=== PATIENT | male | born 1945 | race Caucasian/White ===

== ENCOUNTER 2019-02-07 08:16 | Inpatient (IN) ==
--- NOTE | 2019-01-31 15:59 | Anesthesiology Consultation ---
Date of Service January 31, 2019 Assessment & Plan (1) Encounter for pre-operative examination: - Patient needs new EKG, CT scan of chest, and labs. Chart Review Chart Review: Patient NOT seen in Pre Admission Testing Consults Requested none History Surgery Operation Date: 02/07/19 08:50 Proposed Procedures p Navigational Bronchoscopy with ICG Marking, - Juan Tucker MD, FACS s Robotic Right Video Assisted Thoracoscopy with Right Upper Lobe Wedge Resection, Possible Right Upper Lobectomy with Mediastinaly Lymphadenectomy - Juan Tucker MD, FACS Height/Weight Height: 5 ft 6 in Weight: 66.678 kg Allergies Allergy/AdvReac Type Severity Reaction Status Date / Time infliximab [From Remicade] Allergy Severe throat Verified 01/30/19 11:54 swells, tightness in chest azathioprine [From Imuran] Allergy THROAT Verified 01/30/19 11:57 TIGHT AND TROUBLE BREATHING Medications Home Medications Medication Instructions Recorded Confirmed Last Taken cyanocobalamin (vitamin B-12) 2,000 mcg IM MONTHLY 01/06/19 01/30/19 12/11/18 10:00 ergocalciferol (vitamin D2) 50,000 unit PO WK 01/30/19 01/30/19 Unknown [Vitamin D2] levothyroxine 137 mcg PO QAM 01/30/19 01/30/19 Unknown Past Medical History Medical History Crohns disease (Acute) History of pneumonia (Acute) Hypothyroid (Acute) Past Surgical History Surgical History History of appendectomy (Acute) History of bowel resection (Acute) History of colonoscopy (Acute) History of neck surgery (Acute) History of bronchoscopy Social History Smoking Status: Never smoker Do You Dip or Chew Tobacco: No Hx Alcohol Use: No Hx Substance Use: No substance use type: does not use
--- NOTE | 2019-02-04 12:31 | Anesthesiology Consultation ---
Date of Service February 04, 2019 The patient was seen by cardiology on 11/18/18 and no further testing is necessary at this time. He has had no EKG changes since 2013 when he had a normal stress echo and he has no anginal symptoms. Assessment & Plan (1) Encounter for pre-operative examination: Chart Review Chart Review: Acceptable Risk for Surgery and Patient NOT seen in Pre Admission Testing Consults Requested none History Surgery Operation Date: 02/07/19 08:50 Proposed Procedures p Navigational Bronchoscopy with ICG Marking, - Juan Tucker MD, FACS s Robotic Right Video Assisted Thoracoscopy with Right Upper Lobe Wedge Resection, Possible Right Upper Lobectomy with Mediastinaly Lymphadenectomy - Juan Tucker MD, FACS Height/Weight Height: 5 ft 6 in Weight: 66.678 kg Allergies Allergy/AdvReac Type Severity Reaction Status Date / Time infliximab [From Remicade] Allergy Severe throat Verified 01/30/19 11:54 swells, tightness in chest azathioprine [From Imuran] Allergy THROAT Verified 01/30/19 11:57 TIGHT AND TROUBLE BREATHING Medications Home Medications Medication Instructions Recorded Confirmed Last Taken cyanocobalamin (vitamin B-12) 2,000 mcg IM MONTHLY 01/06/19 01/30/19 12/11/18 10:00 ergocalciferol (vitamin D2) 50,000 unit PO WK 01/30/19 01/30/19 Unknown [Vitamin D2] levothyroxine 137 mcg PO QAM 01/30/19 01/30/19 Unknown Past Medical History Medical History Crohns disease (Acute) History of pneumonia (Acute) Hypothyroid (Acute) Renal insufficiency Past Surgical History Surgical History History of appendectomy (Acute) History of bowel resection (Acute) History of colonoscopy (Acute) History of neck surgery (Acute) History of bronchoscopy Social History Smoking Status: Never smoker Do You Dip or Chew Tobacco: No Hx Alcohol Use: No Hx Substance Use: No substance use type: does not use Testing Electrocardiogram Date: 02/03/19 Findings: + LBBB (L anterior fascicle block), + SB @ (54) and + RBBB Chest X-Ray CT chest superdimension wo con CLINICAL HISTORY: Cavitary lesion of lung. COMPARISON STUDY: Chest CT November 27, 2018. PET/CT December 27, 2018. TECHNIQUE: Axial images of the chest were obtained without IV contrast according to Superdimension protocol. Automated exposure control was utilized for the study. A dose lowering technique was utilized adhering to the principles of ALARA. FINDINGS: No enlarged axillary, mediastinal or hilar lymph nodes are present. The size of the heart is normal. There is no pericardial effusion. Central airways are patent. There is no pneumothorax or pleural effusion. There is no consolidation to suggest pneumonia. A few calcified granulomas within the lungs are noted. A 1.7 x 1 cm irregular cavitary nodule with adjacent ground glass opacity within the right upper lobe on image 69 of 306 is unchanged since initial CT of November 27, 2018. This had mild FDG uptake on previous PET. No suspicious osseous lesions are noted. A 5 mm calculus within the upper pole of the right kidney is partially imaged. Upper abdomen is otherwise unremarkable. IMPRESSION: 1. 1.7 x 1 cm irregular cavitary nodule with adjacent groundglass opacity within the right upper lobe which is similar to initial CT of November 27, 2018. This is highly suggestive of bronchogenic carcinoma. 2. No evidence of metastatic disease within chest. Electronically signed by: Champ Sultana M.D. 02/03/2019 2:07 PM Other Testing Laboratory Tests 12/06/18 02/03/19 02/03/19 13:59 13:17 13:17 WBC 6.11 Hgb 13.5 L Hct 39.7 L Plt Count 192 PT 10.0 INR 1.0 APTT 27.0 Sodium 143 Potassium 3.4 L Chloride 114 H Carbon Dioxide 20 L BUN 20 H Creatinine 1.64 H Glucose 78
[~2019-02-07 08:16] MED LIST: LR 15ML/HR IV SCH
--- NOTE | 2019-02-07 09:21 | History & Physical Bridge Note ---
Date of Service February 07, 2019 History & Physical Bridge Note I have examined the patient, reviewed the History & Physical and in the interval since the performance of the History & Physical I have noted the following changes of clinical significance: no changes noted
[2019-02-07] MEDS ORDERED: HYDROmorphone INJ 1 MG/ML SYRINGE IV PRN (10:08)
[2019-02-07] MEDS ORDERED: fentaNYL citrate 100 MCG/2 ML VIAL IV PRN (10:08)
[2019-02-07] MEDS ORDERED: ePHEDrine sulfate 50 MG/ML AMP IV PRN (10:08)
[2019-02-07] MEDS ORDERED: ATROPINE SULFATE 0.1 MG/ML 10ML SYR IV PRN (10:08)
[2019-02-07] MEDS ORDERED: ONDANSETRON INJ 2 MG/ML 2 ML VIAL IV PRN ×2 (10:08→15:56)
[2019-02-07] MEDS ORDERED: MIDAZOLAM HCL 1 MG/ML 2ML VIAL ONE (10:21)
[2019-02-07] MEDS ORDERED: fentaNYL citrate 100 MCG/2 ML VIAL ONE (10:21)
[2019-02-07] MEDS ORDERED: LIDOCAINE 2% JELLY 5 ML TUBE ONE (11:11)
[2019-02-07] MEDS ORDERED: SODIUM CHLORIDE 0.9% PF 50 ML VIAL ONE (11:12)
[2019-02-07] MEDS ORDERED: BUPIVACAINE LIPOSOME 1.3% 266 MG/20 ML VIAL ONE (11:12)
[2019-02-07] MEDS ORDERED: BUPIVACAINE 0.5 % 5 MG/1 ML MPF 30ML VIAL ONE (11:12)
[2019-02-07] MEDS ORDERED: SODIUM CHLORIDE 0.9% INJ 10 ML VIAL ONE (11:50)
[2019-02-07] MEDS ORDERED: CEFAZOLIN 250 MG/ML 1 GM VIAL ONE (11:50)
[2019-02-07] MEDS ORDERED: CEFAZOLIN 1000MG 1,000 MG/7.5 ML SYR IV ONE (11:52)
[2019-02-07] MEDS ORDERED: LIDOCAINE HCL 2% 2 ML VIAL/AMP(20MG/ML) INFIL ONE (11:59)
[2019-02-07] MEDS ORDERED: NEOSTIGMINE METHYLSULFATE 5 MG/5 ML SYR ONE (11:59)
[2019-02-07] MEDS ORDERED: ONDANSETRON INJ 2 MG/ML 2 ML VIAL ONE (11:59)
[2019-02-07] MEDS ORDERED: DEXAMETHASONE SOD INJ 4 MG/ML VIAL ONE (11:59)
[2019-02-07] MEDS ORDERED: PROPOFOL IV EMULSION 10 MG/ML 20 ML VIAL IV ONE (11:59)
[2019-02-07] MEDS ORDERED: GLYCOPYRROLATE 0.2 MG/ML VIAL ONE (11:59)
[2019-02-07] MEDS ORDERED: ROCURONIUM BROMIDE 10 MG/ML 5 ML VIAL ONE (11:59)
[2019-02-07] MEDS ORDERED: HYDROmorphone INJ 2 MG/ML SYR/VIAL ONE (12:00)
--- NOTE | 2019-02-07 12:40 | Fluoroscopy Report ---
FL chest 1V frontal CLINICAL HISTORY: WOOD BRONCH WITH ICG MARKINGbronchoscopy COMPARISON STUDY: None FLUOROSCOPY TIME: 32nd NUMBER OF FLUOROSCOPIC IMAGES: 1 FINDINGS: Image intensifier was utilized for navigational bronchoscopy IMPRESSION: Image intensifier utilization for navigational bronchoscopy The above report was generated using voice recognition software. It may contain grammatical, syntax or spelling errors. Electronically signed by: Parveen Mccormack M.D. 02/07/2019 12:39 PM
[2019-02-07] MEDS ORDERED: INDOCYANINE GREEN 25 MG/10 ML INJ ONE (12:59)
--- NOTE | 2019-02-07 15:05 | Post Operative Brief Note ---
Immediate Post Op Note v1 Date of Surgery February 07, 2019 Pre & Post Diagnosis Operation Date: 02/07/19 10:50 Pre-Op Diagnosis: Cavitary Lesion Right Lung Post-Op Diagnosis: ADENOCARCINOMA RIGHT UPPER LOBE Procedure Operation Date: 02/07/19 10:50 Actual Procedures p Navigational Bronchoscopy with ICG Marking, - Juan Tucker MD, FACS s Robotic Right Video Assisted Thoracoscopy with Right Upper Lobe Wedge Resection, Right Upper Lobectomy with Mediastinal Lymphadenectomy(Right) - Juan Tucker MD, FACS Surgeon Juan Tucker MD, FACS Doors Prefitter Anid Corley Estimated Blood Loss 100 Findings Consistent with Post-Op Diagnosis Drains Chest Tube and Florentino Catheter
--- NOTE | 2019-02-07 15:49 | XRay Report ---
XR chest 1V portable CLINICAL HISTORY: lobectomy postoperative COMPARISON STUDY: No previous studies for comparison. FINDINGS: Postoperative changes right hemithorax. Small amount subcutaneous emphysema. Right lateral chest tube in good position. No evidence for a significant postprocedural pneumothorax. Mild platelike atelectasis left base. Left lung is otherwise clear. IMPRESSION: 1. No significant pneumothorax post operative change right hemithorax. 2. Small amount subcutaneous emphysema. The above report was generated using voice recognition software. It may contain grammatical, syntax or spelling errors. Electronically signed by: Parveen Mccormack M.D. 02/07/2019 3:47 PM
--- NOTE | 2019-02-07 16:43 | Anesthesiology Progress Note ---
Date of Service February 07, 2019 Anesthesia Post Procedure Vital Signs Vital Signs: Temp Pulse Pulse Resp BP Pulse Ox 02/07/19 16:30 36.4 C L 61 15 130/76 96 02/07/19 16:20 64 16 136/80 97 02/07/19 16:10 60 18 129/73 97 02/07/19 16:00 61 15 138/77 100 02/07/19 15:50 61 20 135/78 100 02/07/19 15:40 65 19 136/79 100 02/07/19 15:31 36.0 C L 63 12 129/74 100 02/07/19 09:06 36.7 C 50 L 20 143/75 H 100 Pain Intensity Right Chest: Pain Intensity: 0 Transfer of Care Handoff Completed per policy Notes Mental Status: alert / awake / arousable and participated in evaluation Patient Amnestic to Procedure: Yes Nausea / Vomiting: adequately controlled Pain: adequately controlled Airway Patency, RR, SpO2: stable & adequate BP & HR: stable & adequate Hydration State: stable & adequate Anesthetic Complications: no major complications apparent
[2019-02-07] MEDS: KETOROLAC TROMETHAMINE 15 MG/ML VIAL IV SCH (17:40)
[2019-02-07 18:04] LABS: Partial Thromboplastin Ratio 0.9; Partial Thromboplastin Time 25.1 Seconds (21.0-31.0); Prothrombin Time 10.4 Seconds (9.0-12.0)
[2019-02-07 18:08] LABS: Creatinine Clr Calc Pharmacy 36.2 ml/min; Est GFR (African American) 47.4; Est GFR (Non-African American) 40.9
[2019-02-07 19:12] LABS: Hematocrit (blood only) 38.9 % (42-52); Hemoglobin 13.1 g/dL (14.0-18.0); Mean Corpuscular Hgb Conc 33.7 g/dL (32-36); Mean Corpuscular Volume 89.2 fL (80-100); Mean Platelet Volume 10.1 fL (7.4-10.4); Platelet Count 161 K/uL (130-400); RDW Coefficient of Variation 13.1 % (11.5-14.5); RDW Standard Deviation 42.1 fL (36.4-46.3); Red Blood Count 4.36 M/uL (4.7-6.1); White Blood Count 11.44 K/uL (4.8-10.8)
[2019-02-07] MEDS: ENOXAPARIN INJ 40 MG/0.4 ML SYR SQ SCH (20:08)
--- NOTE | 2019-02-07 23:45 | Operative Report ---
DATE OF OPERATION: 02/07/2019 PREOPERATIVE DIAGNOSIS: Cystic lesion, right upper lobe. POSTOPERATIVE DIAGNOSIS: Adenocarcinoma, right upper lobe. PROCEDURE: 1. Navigational bronchoscopy with marking of lesion with indocyanine green dye. 2. Robot-assisted thoracoscopic wedge resection, right upper lobe. 3. Robot-assisted thoracoscopic right upper lobectomy. 4. Robot-assisted thoracoscopic mediastinal lymphadenectomy. SURGEON: Juan Tucker MD DENTAL HYGIENE PROFESSOR: Andi Chaudhry PA-C (Mr. Clemonskwabenaesterlla was there for the entire case and was instrumental at the patient's bedside while I was at the console. He also helped close the incision at the conclusion. ANESTHESIA: General anesthesia with endotracheal intubation using double lumen tube. SPECIFICS OF PROCEDURE AND FINDINGS: Ba Goodman is a 73-year-old who has never really smoked. He was found to have a cystic lesion in his right upper lobe. While it was not very active metabolically, we were concerned about it. I saw him in the office and felt that we should proceed with a resection and frozen section. On 02/07/2019, the patient was brought to the operating room and underwent uncomplicated navigational bronchoscopy and marking of this area in the right upper lobe with indocyanine green dye. We then turned him and performed a robotic resection. We could see this area quite nicely. This was delivered off the field and while waiting for the frozen section, I freed up the inferior pulmonary ligament and did a full lymph node biopsy. It came back as an adenocarcinoma. We completed the lobectomy without difficulty. He tolerated it well, was extubated in the room with negligible blood loss. DESCRIPTION OF PROCEDURE: The patient was brought to the operating room and laid in the supine position. General anesthesia was induced and endotracheal intubation was performed. After appropriate timeout had been called and prophylactic antibiotics given, a fiberoptic bronchoscope was placed down through the adapter into the endotracheal tube and we then used the navigational probe to register the airways. I then went out the upper lobe and I was able to get right out to the mass which we could see, although we did not have very good confirmation with our radial ultrasound. I injected 1 mL of indocyanine green dye with 1 mL of air and then we removed the bronchoscope. He had no bleeding with this. His single lumen tube was then changed to a double lumen tube and after positioning this properly, the patient was then turned into the left lateral decubitus position and his right chest was prepped and draped in the usual sterile fashion. After appropriate timeout had been called and antibiotics had already been given, an incision was made anterior to the mid axillary line below the scapular tip in about the seventh interspace. Upon placing the 5 mm scope, we could see there were no adhesions. I then placed an 8 mm port anteriorly, an 8 mm port posteriorly and then further posterior a few centimeters from the spine, we placed a 5 mm port. These were all more or less in the same interspace except for the anterior port which was one interspace higher. I then placed an habilitation assistant's port, which was a 15 mm port above the diaphragm anteriorly. A 30-degree scope was then used. This was an 8.5 mm scope. Then upon going in, we went posteriorly, and we were able to see the area quite nicely where we had injected the indocyanine green dye when we used the fluorescence. I grasped this area and made a generous biopsy with Endo-BAKARI staplers. This was delivered off the field in an Endobag. While we were waiting for the frozen section, I proceeded to take down lymph nodes. The inferior pulmonary ligament was taken down. The level 9 node was biopsied. I biopsied level 8 node. I biopsied an entire mat of nodes from the level 7 area. As we were in this area, I then dissected down into the upper lobe bronchus and the bronchus intermedius and came upon a lymph node right at the bifurcation which I removed. I dissected this out completely and the posterior ascending artery which is the A3 segment was easily identified. I continued to dissect this out and dissected out much of the bronchus. I then went up top, dissected out a whole mat of nodes at the level 2 and level 4 area. Coming down, I also biopsied a level 10 area and actually freed up the superior hilum by the lymph node tissue and removing it and biopsying several level 10 nodes. This went quite well and then we went anterior and freed up the anterior pleura and identified the phrenic nerve and care was taken to avoid injury to it. Dissecting this out, we could easily identify the middle lobe vein. I then the superior pulmonary vein just distal to the confluence with the middle lobe vein. We identified the artery behind this and then went around this and fired an Endo-BAKARI stapler across the vein. I then dissected out the artery further and was easily able to get around the apical anterior branch and fired Endo-BAKARI stapler across this. This freed up things nicely and I then went back posterior again and then fired an Endo-BAKARI stapler across the takeoff of the upper lobe. This left only the A3 branch left, which was small. For this reason, I used Endo clips and did put 2 clips proximally and one distally and used EndoShears to divide this artery. This freed up things nicely and the fissure was incomplete, but we were easily able to see where this was and we fired Endo-BAKARI stapler starting anteriorly along the fissure, stayed above the artery, and then completed the staple line all the way posteriorly. This freed up all of the attachments. This was placed into an Endobag and removed through the habilitation assistant's port. We only had to enlarge it probably a centimeter. The hilum was closely inspected and we irrigated it. We really did not see much of an air leak and really did not see any bleeding. We lost very little blood during this case. I did dissect out some anterior level 10 and 11 nodes when the veins. He looked very good at the conclusion of the case. His lung inflated nicely. It should be noted that we mixed 266 mg of Exparel with 250 mL of normal saline and 30 mL of 0.25% Marcaine. We then injected this into each of the 5 port sites before we made them and then did an intercostal block from the 2nd to the 11th rib. We did this at the onset of the case. A 24-Latvian chest tube was placed through the camera port and directed towards the apex and held in place with heavy silk suture. We then closed all the other incisions using 0 Vicryl in a running continuous fashion. A 4-0 Monocryl was used in a running subcuticular fashion to approximate the wound edges. He was extubated in the room and transported to the postanesthesia care unit in stable condition. I attest to the content of the Intraoperative Record and any orders documented therein. Any exception s are noted below.
[2019-02-08] MEDS: KETOROLAC TROMETHAMINE 15 MG/ML VIAL IV SCH ×3 (01:29→17:57)
[2019-02-08] MEDS: LEVOTHYROXINE SODIUM 137 MCG TABLET PO SCH (06:04)
[2019-02-08] MEDS: OXYCODONE/ACETAMINOPHEN 5mg/325mg TAB PO PRN ×3 (07:28→16:08)
--- NOTE | 2019-02-08 09:22 | Progress Note ---
DATE: 02/08/2019 Mr. Goodman is seen today. He is having some pain, but quite frankly, I think he looks good. He is postop day 1 status post a robot-assisted thoracoscopic right upper lobectomy for an early stage lung cancer. He has had very little drainage from his chest tube. He does have a small air leak. I was quite pleased with his x-ray last night as his lung was completely expanded. He sounds very good on exam. He has 99% saturation on room air. He has been ambulating in the hallway. ASSESSMENT AND PLAN: Postoperative day #1 status post robot-assisted thoracoscopic right upper lobectomy with mediastinal lymphadenectomy for an early stage adenocarcinoma. I am quite pleased with how well he has tolerated the operation. I had a long discussion with him about his air leak and about waiting until this heals. He understands. We will continue to ambulate him aggressively.
--- NOTE | 2019-02-08 17:08 | Anesthesiology Progress Note ---
Date of Service February 08, 2019 Anesthesia Post Procedure Vital Signs Vital Signs: Temp Pulse Resp BP BP Pulse Ox Pulse Ox 02/08/19 15:30 36.6 C 58 L 16 129/69 97 02/08/19 12:00 98 02/08/19 11:52 36.6 C 58 L 16 110/63 97 02/08/19 08:00 98 02/08/19 07:00 36.4 C L 54 L 18 138/77 99 02/08/19 05:20 36.5 C 59 L 16 110/65 97 02/08/19 03:32 36.5 C 57 L 14 107/62 98 98 02/08/19 01:20 36.5 C 60 16 109/67 97 02/07/19 23:20 36.5 C 61 16 114/65 98 02/07/19 21:24 36.8 C 61 18 130/74 95 02/07/19 20:28 36.8 C 63 17 111/61 96 02/07/19 19:20 36.5 C 65 17 120/73 96 02/07/19 18:23 36.4 C L 64 116/79 97 02/07/19 17:57 36.4 C L 64 16 131/76 97 02/07/19 17:42 36.8 C 65 16 130/74 97 02/07/19 17:20 36.8 C 65 16 130/74 97 Pain Intensity Right Chest: Pain Intensity: 7 Transfer of Care Handoff Completed per policy Notes Mental Status: alert / awake / arousable and participated in evaluation Patient Amnestic to Procedure: Yes Nausea / Vomiting: adequately controlled Pain: adequately controlled Airway Patency, RR, SpO2: stable & adequate BP & HR: stable & adequate Hydration State: stable & adequate Anesthetic Complications: no major complications apparent and Pt Satisfied with anesthetic care
[2019-02-08] MEDS: ENOXAPARIN INJ 40 MG/0.4 ML SYR SQ SCH (18:02)
[2019-02-09] MEDS: KETOROLAC TROMETHAMINE 15 MG/ML VIAL IV SCH ×2 (02:28→09:56)
[2019-02-09] MEDS: LEVOTHYROXINE SODIUM 137 MCG TABLET PO SCH (05:54)
--- NOTE | 2019-02-09 07:15 | XRay Report ---
XR chest 1V portable CLINICAL HISTORY: Postoperative study COMPARISON STUDY: 02/07/2019 FINDINGS: The right-sided chest tube remains unchanged in position. There is stable mild right hilar prominence. There is a small amount of subcutaneous emphysema the right. There is no focal pulmonary consolidation. There is no pneumothorax. There is minor left basilar atelectatic change.[ IMPRESSION: Postsurgical changes. No acute findings. No evidence of pneumothorax. Electronically signed by: Oli Sarmiento M.D. 02/09/2019 7:14 AM
--- NOTE | 2019-02-09 10:15 | XRay Report ---
XR chest 1V portable CLINICAL HISTORY: CHEST TUBE REMOVAL COMPARISON STUDY: 02/09/2019 FINDINGS: The cardiac and mediastinal contours remain stable. There has been interval removal of the right-sided chest tube. There is a 16 mm right apical pneumothorax. There is minimal right-sided subc utaneous emphysema. There are linear atelectatic changes at the left lung base. There is a stable 14 mm nodular opacity at the right lung base.[ IMPRESSION: 1. Interval removal of the right-sided chest tube 2. 16 mm right apical pneumothorax 3. 14 mm nodular opacity at the right lung base Electronically signed by: Oli Sarmiento M.D. 02/09/2019 10:14 AM
--- NOTE | 2019-02-09 10:56 | Discharge Summary ---
DISCHARGE DIAGNOSIS: Adenocarcinoma, right upper lobe. HOSPITAL COURSE: This 73-year-old male, who has really never been a smoker, was found to have a cystic lesion in his right upper lobe, which was concerning. We finally decided we should do a resection with biopsy of this. On 02/07/2019, the patient underwent a navigational bronchoscopy with marking of a lesion with indocyanine green dye. We then turned the patient and performed a thoracoscopy and could see the dye markings quite nicely with the fluorescent dye. We then did a wedge resection and it turns out this was an adenocarcinoma. An uncomplicated robot-assisted thoracoscopic right upper lobectomy with mediastinal lymphadenectomy was then performed. He did quite well. We had very little in the way of blood loss. He had a tiny air leak the day of surgery. This had more or less resolved by the next day and on postop day 2, had none at all. I removed his chest tube. All of his incisions were clean. His chest x-ray looked quite good after we removed it. I had a long talk about our postop instructions. I will see him back in a week to go over his final pathology. It appears that we have an early stage lung cancer.
[2019-02-10] MEDS ORDERED: ERGOCALCIFEROL 50,000 UNITS CAP PO SCH (09:00)
[2019-03-08] MEDS ORDERED: CYANOCOBALAMIN 1000 MCG/ML VIAL IM SCH (09:00)
== END 2019-02-09 13:10 | disposition home or self-care (01) | DRG 164 ==
LOC: ASU 08:16 → 3N 15:51

== ENCOUNTER 2023-08-15 13:28 | Inpatient (IN) ==
[2023-08-15] MEDS ORDERED: SODIUM CHLORIDE 0.9% 500 ML IV STA (13:40)
[2023-08-15] MEDS ORDERED: ACETAMINOPHEN 500 MG TAB PO STA (13:40)
--- NOTE | 2023-08-15 13:40 | ED Triage Note ---
Date of Service August 15, 2023 Provider in Triage Author: Kenyatta Aguilar History of Present Illness This patient was briefly evaluated while in triage. An abbreviated physical exam was performed. This patient is a 77-year-old Male who presents to the ED for evaluation of illness. He saw Dr. Randolph this morning and was to have his ureteral stent removed. However, they thought that he had an infection because he was having hot flashes and chills so they did not want to remove it. Started with fever 102.5 F after he left Dr. Randolph office and they told him to come to the ER. Having some right sided flank pain that appears to be acute on chronic. Has a history of Crohn's Disease, but not currently on treatment. Physical Exam GENERAL: Non-toxic and in no acute distress. HEENT: Pupils equal. No obvious scleral icterus. HEART: Regular rate and rhythm. LUNGS: Clear to auscultation. No accessory muscle use. ABDOMEN: Soft, diffuse mild tenderness to palpation mainly in the lower abdomen. No CVA tenderness. NEURO: Alert and oriented. No obvious neurological deficits on quick neuro exam. Initial orders for labs and / or imaging were placed and patient was placed in the waiting area until a bed is available. Please see further documentation for the full ED course.
[2023-08-15 14:33] LABS: Appearance Urine Cloudy (Clear); Bacteria Urine Automated Negative (Negative); Bilirubin Urine Negative (Negative); Blood Urine 3+ (Negative); Color Urine Orange; Epithelial Cell Urine Auto 20-30 /lpf (0-5); Glucose Urine UA Negative (Negative); Ketones Urine Negative (Negative); Leukocyte Esterase Urine Trace (Negative); Nitrite Urine Negative (Negative); Protein Urine 2+ (Negative); RBC Urine Automated >30 /hpf (0-4); Specific Gravity Urine 1.012 (1.000-1.030); Urobilinogen Urine Negative (Negative)
--- NOTE | 2023-08-15 15:03 | XRay Report ---
SINGLE VIEW CHEST CLINICAL HISTORY: Fever FINDINGS: A PA chest radiograph is compared to study dated 02/26/2023. The cardiomediastinal silhouett e is unremarkable noting atherosclerotic calcification of the thoracic aorta. There is mild chronic e levation of the right hemidiaphragm. There are scattered calcified granulomas. The lungs and pleural spaces are otherwise clear. No pneumothorax is seen. The skeletal structures are osteopenic. The bony 4 is grossly intact. IMPRESSION: No active disease in the chest. ACT 112: Negative or not required by law. Electronically signed by: Jewel Yepez M.D. 08/15/2023 3:02 PM
[2023-08-15 15:15] LABS: Basophils # (auto) 0.02 K/uL (0.00-0.20); Basophils % (auto) 0.3 %; Eosinophils # (auto) 0.01 K/uL (0.00-0.50); Eosinophils % (auto) 0.2 %; Hematocrit (blood only) 39.1 % (42.0-52.0); Hemoglobin 13.4 g/dl (14.0-18.0); Immature Granulocytes # (auto) 0.02 K/uL (0.01-0.20); Immature Granulocytes % (auto) 0.3 %; Lymphocytes # (auto) 0.67 K/uL (1.20-3.40); Lymphocytes % (auto) 10.2 %; Mean Corpuscular Hemoglobin 30.5 pg (25.0-34.0); Mean Corpuscular Hgb Conc 34.3 g/dL (32.0-36.0); Mean Corpuscular Volume 89.1 fL (80.0-100.0); Mean Platelet Volume 10.2 fL (9.4-12.4); Monocytes # (auto) 0.74 K/uL (0.11-0.59); Monocytes % (auto) 11.3 %; Neutrophils # (auto) 5.09 K/uL (1.40-6.50); Neutrophils % (auto) 77.7 %; Platelet Count 164 K/uL (130-400); RDW Coefficient of Variation 14.1 % (11.5-14.5); RDW Standard Deviation 45.9 fL (36.4-46.3); Red Blood Count 4.39 M/uL (4.70-6.10); White Blood Count 6.55 K/ul (4.8-10.8)
[2023-08-15 15:31] LABS: Albumin Globulin Ratio 1.4 (0.9-2); Bilirubin,Total 0.6 mg/dl (0.2-1.0); Calcium 8.6 mg/dl (8.6-10.3); Creatinine Clr Calc Pharmacy 19.7 ml/min; Est GFR (African American) 26.5 ml/min; Est GFR (Non-African American) 22.9 ml/min; Globulin 2.9 gm/dl (2.5-4.0); Potassium 3.1 mmol/L (3.5-5.1); Total Protein 6.9 gm/dl (6.0-8.3)
[2023-08-15] MEDS ORDERED: OPTIRAY 320 500ml IV ONE (15:45)
[2023-08-15 16:10] LABS: Adenovirus PCR Not Detected (NotDetected); Bordetella parapertussis PCR Not Detected (NotDetected); Bordetella pertussis PCR Not Detected (NotDetected); Chlamydia pneumoniae PCR Not Detected (NotDetected); Coronavirus 229E PCR Not Detected (NotDetected); Coronavirus CoV-2 (COVID19)PCR Not Detected (NotDetected); Coronavirus HKU1 PCR Not Detected (NotDetected); Coronavirus NL63 PCR Not Detected (NotDetected); Coronavirus OC43PCR Not Detected (NotDetected); Human Metapneumovirus PCR Not Detected (NotDetected); Influenza B PCR Not Detected (NotDetected); Mycoplasma pneumoniae PCR Not Detected (NotDetected); Parainfluenza Virus 1 PCR Not Detected (NotDetected); Parainfluenza Virus 2 PCR Not Detected (NotDetected); Parainfluenza Virus 3 PCR Not Detected (NotDetected); Parainfluenza Virus 4 PCR Not Detected (NotDetected); Respiratory Syncytial VirusPCR Not Detected (NotDetected); Rhinovirus/Enterovirus PCR Not Detected (NotDetected)
[2023-08-15 16:19] LABS: Influenza A (H1 2009) PCR DETECTED (NotDetected)
--- NOTE | 2023-08-15 16:55 | CT Scan Report ---
CT SCAN OF THE ABDOMEN AND PELVIS WITH IV CONTRAST CLINICAL HISTORY: Fever. Right flank pain. COMPARISON STUDY: Abdominal CT scans dated 09/10/2019 and 01/24/2023. TECHNIQUE: Following the IV administration of 84 cc of Optiray 320, CT scan of the abdomen and pelvi s is performed from the lung bases to the proximal femora. Images are reviewed in the axial, sagittal , and coronal planes. IV contrast was administered without complication. A dose lowering technique wa s utilized adhering to the principles of ALARA. CT DOSE: 450.8 mGy.cm FINDINGS: Lung bases: The heart is normal in size and without pericardial effusion. The lung bases are clear. T here is a small hiatal hernia. Liver: The contrast-enhanced liver is normal in size, contour, and attenuation. There is no intrahepa tic biliary ductal dilatation. The hepatic veins and portal veins are patent. A 1.6 cm hepatic cyst i s unchanged. Gallbladder: There are layering calcified gallstones without CT evidence of acute cholecystitis. Spleen: Normal in size and attenuation. Pancreas: Unremarkable. Adrenal glands: Unremarkable. Kidneys: There is asymmetric cortical atrophy of the left kidney as compared to the right. A right ur eteral stent is in place. No calcifications are identified in the right ureter along the course of th e stent. There is no hydronephrosis. There is heterogeneously diminished enhancement of the left kidn ey as compared to the right. There are numerous (approximately 10) nonobstructing right renal calculi which measure up to 9 mm. Nonobstructing left renal calculi measuring up to 6 mm. No left ureteral s tone is seen. There is a 1.5 cm cyst in the left upper pole. Additional subcentimeter cortical hypode nsities also likely represent cysts but are too small for definitive characterization. Abdominal vasculature: There is advanced atherosclerotic plaque and mild ectasia of the abdominal aor ta. Bowel: Postsurgical change is noted at the ileocecal junction. No bowel obstruction is seen. The appe ndix is surgically absent. Peritoneum/retroperitoneum: There is no intraperitoneal free air or abdominal ascites. There is a mul tiloculated minimally complex right retroperitoneal fluid collection between the right kidney and the right psoas muscle. This approximates the ureteral stent on image #162. This measures approximately 15.5 x 10.5 x 3 cm in aggregate dimension. Lymphadenopathy: None. Pelvic viscera: The bladder wall appears mildly thickened. The bladder contains the distal end of a l eft ureteral stent. Trace free fluid is seen in the pelvis. The prostate gland is enlarged and hetero geneous. Skeletal structures: No lytic or blastic lesions are seen. IMPRESSION: 1. A right ureteral stent is in place. No stones are identified in the right ureter along the course of the stent and there is no hydronephrosis. 2. Bilateral nephrolithiasis as above. 3. There is an approximately 15.5 x 10.5 x 3 cm multiloculated minimally complex right retroperitonea l fluid collection as detailed above. This is indeterminate, but new from the 01/24/[address] s can. This may represent a resolving retroperitoneal hemorrhage or possibly a urinoma. The sterility o f this fluid cannot be assessed by imaging. 4. The bladder wall appears thickened. Correlate with clinical findings and urinalysis. 5. Cholelithiasis without CT evidence of acute cholecystitis. 6. Additional findings as above. ACT 112: Negative or not required by law. Electronically signed by: Jewel Yepez M.D. 08/15/2023 4:53 PM
[2023-08-15] MEDS ORDERED: SODIUM CHLORIDE 0.9% 1,000 ML IV SCH (17:10)
[2023-08-15] MEDS ORDERED: CEFEPIME 20 ML IV ONE (18:15)
--- NOTE | 2023-08-15 19:19 | Emergency Department Note ---
Impression & Plan Retroperitoneal fluid collection, S/P ureteral stent placement, Influenza, Fever ED Provider Note CHIEF COMPLAINT: Fever, ureteral stent HISTORY OF PRESENT ILLNESS: This 77-year-old male patient with past medical history of adenocarcinoma of the lung, ureteral stent due to nephrolithiasis, chronic kidney disease presents to the emergency department with complaints of fever. The patient has been experiencing some right-sided flank pain, which she has been attributing to his ureteral stent. He contacted urology today as he was supposed to have the stent removed and let them know he had a fever. They felt that the stent should remain in place but sent him to the emergency department for further evaluation. Patient denies any other symptoms such as vomiting, cough, shortness of breath. REVIEW OF SYSTEMS: A review of systems was performed with positives and pertinent negatives listed in the history of present illness. 10 systems were reviewed and are otherwise negative. ALLERGIES: see below MEDICATIONS: see below PMH: see below SOCIAL HISTORY: see below DDx: Viral etiology such as influenza, COVID, infected ureteral stent/pyelonephritis, dysfunctional ureteral stent, pneumonia, among others. PHYSICAL EXAM: Vital signs reviewed. Noted to be febrile. General: Well-appearing 77-year-old male, in no significant distress. HEENT: No scleral icterus, PERRLA, neck supple. Moist mucous membranes. Cardiovascular: Regular rate and rhythm, no extra sounds. Pulmonary: Clear to auscultation bilaterally, normal work of breathing. Abdomen: Soft, nontender, nondistended, positive bowel sounds. Musculoskeletal: Atraumatic, no peripheral edema. No CVA tenderness. Neurologic: Patient awake alert and oriented x 3, speech is clear Skin: Warm, dry, no rash EMERGENCY DEPARTMENT COURSE/MDM: This patient was evaluated and appeared to be in no significant distress. The patient was initially evaluated in the subwaiting room and orders were initiated. IV access was obtained and laboratory work was drawn. Patient did receive p.o. Tylenol for fever, IV hydration with normal saline solution was initiated.. CT imaging was performed of the abdomen and pelvis which reveals a patent ureteral stents but a retroperitoneal fluid collection on the right. Patient is also tested positive for influenza. I did discuss the case with urology, Dr. Paez who reviewed the patient's chart. He states the immediate treatment is to leave the stent in place. While the fever is likely coming from the influenza as there is no elevation of the WBC in the urine does not appear to be infected, antibiotic coverage was added with cefepime after discussing with the clinical pharmacist. Patient's case was discussed with the hospitalist service for admission with urologic consultation for the retroperitoneal fluid collection. Patient and family were made aware of the plan and agreed. MONITORING: An order for cardiac monitoring was placed and the patient is noted to be in a sinus bradycardia at 55 beats per minute. RADIOLOGY: Chest x-ray to my interpretation reveals no evidence of focal lung consolidation or failure. CT imaging of the abdomen pelvis to my review reveals evidence of a right ureteral stent, retroperitoneal fluid collection. Otherwise defer to radiology's over read below. DISPOSITION: Admission Past Med/Surg History Medical History Hyperglycemia Hgb A1C 5.1 on 02/27/23 Kidney stones Anxiety C. difficile diarrhea dx 01/2023- completed vancomycin, symptoms resolved Complex renal cyst Chronic kidney disease, stage 3a Follows with Dr Parmar last seen 05/2023 DVT (deep venous thrombosis) 07/2019- s/p bowel obstruction- was on Eliquis- has since been d/c'ed- no issues since History of lung cancer 2018- right lobe s/p right upper lobectomy- no chemo or XRT Follows with pulm Neuropathic pain Hands and feet Crohns disease (~1985) Stable at this time - follows only with PCP Hypothyroid Surgical History S/P cystoscopy with ureteral stent placement x2; w/laser destruction kidney stone History of esophagogastroduodenoscopy (EGD) History of anesthesia reaction "woke up during last couple colonoscopies, was uncomfortable and could feel procedure" states no issues after last colonoscopy Status post lobectomy of lung (02/07/19) Right upper lobectomy Dr. Tucker 02-07-19 History of bronchoscopy History of colonoscopy History of appendectomy History of neck surgery bone spur removal--normal ROM History of bowel resection (~1989) DUE TO CROHNS Family History Father Heart disease Nephrolithiasis Other No family history of adverse response to anesthesia Denies family history of Crohn's disease Cancer Ulcerative colitis Social History Smoking Status: Never smoker Second Hand Exposure: No; Do You Dip or Chew Tobacco: No; Hx Alcohol Use: No Hx Substance Use: No Preferred Language: Fijian Communication Ability: Effective Visual Impairment: No Limitations Pan Dumper Required: No Beliefs That Will Affect Care: None Current Living Situation: Spouse Other Information That Helps Us Care for You: No Feels Safe at Home: Yes Safety Concerns: Feels Safe At This Time Assistive Devices: None Allergies Allergies Allergy/AdvReac Type Severity Reaction Status Date / Time azathioprine [From Imuran] Allergy Severe THROAT Verified 08/15/23 19:40 TIGHT AND TROUBLE BREATHING infliximab [From Remicade] Allergy Severe throat Verified 08/15/23 19:40 swells, tightness in chest Home Meds Home Medications Medication Instructions Recorded Confirmed escitalopram oxalate 10 mg tablet 10 mg PO HS 06/08/23 08/15/23 (Lexapro) levothyroxine 88 mcg tablet 88 mcg PO QAM 06/08/23 08/15/23 cholecalciferol (vitamin D3) 25 25 mcg PO QAM 07/27/23 08/15/23 mcg (1,000 unit) tablet (Vitamin D3) lisinopril 5 mg tablet 5 mg PO QAM 07/27/23 08/15/23 sodium bicarbonate 650 mg tablet 650 mg PO QAM 07/27/23 08/15/23 Previous Rx's Medication Instructions Recorded ciprofloxacin HCl 500 mg tablet 500 mg PO Q12H #15 tabs 08/15/23 (Cipro) Results & Data (ED) Vital Signs Vital Signs - 24 hr 08/15/23 13:36 08/15/23 16:38 08/15/23 18:46 Temperature 38.0 C H 37.4 C Temperature Source Temporal Artery Scan Oral Pulse Rate 80 Pulse Rate [Finger] 63 Respiratory Rate 22 18 Respiratory Effort / Characteristics Non-Labored Respiratory Depth Normal Normal Blood Pressure 128/71 Blood Pressure [Left Arm] 126/65 Blood Pressure Mean 90 Blood Pressure Mean [Left Arm] 85 Blood Pressure Position [Left Arm] Sitting Pulse Oximetry 99 97 Oxygen Delivery Method Room Air Room Air Room Air Sepsis Recent Fever Within 48 Hours No Sepsis New/Unexplained Change in Mental Status N/A Sepsis Action Taken by Nursing No Action Required 08/15/23 18:49 08/15/23 18:50 08/15/23 18:52 Temperature Temperature Source Pulse Rate 54 L 56 L 54 L Pulse Rate [Finger] Respiratory Rate 22 21 Respiratory Effort / Characteristics Respiratory Depth Blood Pressure Blood Pressure [Left Arm] Blood Pressure Mean Blood Pressure Mean [Left Arm] Blood Pressure Position [Left Arm] Pulse Oximetry Oxygen Delivery Method Sepsis Recent Fever Within 48 Hours Sepsis New/Unexplained Change in Mental Status Sepsis Action Taken by Nursing 08/15/23 19:00 08/15/23 19:00 08/15/23 19:10 Temperature Temperature Source Pulse Rate 57 L 55 L Pulse Rate [Finger] Respiratory Rate 21 19 Respiratory Effort / Characteristics Respiratory Depth Blood Pressure 122/61 Blood Pressure [Left Arm] Blood Pressure Mean 93 Blood Pressure Mean [Left Arm] Blood Pressure Position [Left Arm] Pulse Oximetry Oxygen Delivery Method Sepsis Recent Fever Within 48 Hours Sepsis New/Unexplained Change in Mental Status Sepsis Action Taken by Nursing 08/15/23 19:20 08/15/23 19:30 08/15/23 19:30 Temperature Temperature Source Pulse Rate 55 L 56 L Pulse Rate [Finger] Respiratory Rate 22 21 Respiratory Effort / Characteristics Respiratory Depth Blood Pressure 125/70 Blood Pressure [Left Arm] Blood Pressure Mean 102 Blood Pressure Mean [Left Arm] Blood Pressure Position [Left Arm] Pulse Oximetry Oxygen Delivery Method Sepsis Recent Fever Within 48 Hours Sepsis New/Unexplained Change in Mental Status Sepsis Action Taken by Nursing 08/15/23 19:40 08/15/23 19:50 08/15/23 20:00 Temperature Temperature Source Pulse Rate 70 60 56 L Pulse Rate [Finger] Respiratory Rate 19 18 22 Respiratory Effort / Characteristics Respiratory Depth Blood Pressure Blood Pressure [Left Arm] Blood Pressure Mean Blood Pressure Mean [Left Arm] Blood Pressure Position [Left Arm] Pulse Oximetry Oxygen Delivery Method Sepsis Recent Fever Within 48 Hours Sepsis New/Unexplained Change in Mental Status Sepsis Action Taken by Nursing 08/15/23 20:00 08/15/23 20:10 08/15/23 20:20 Temperature Temperature Source Pulse Rate 56 L 56 L Pulse Rate [Finger] Respiratory Rate 23 20 Respiratory Effort / Characteristics Respiratory Depth Blood Pressure 127/68 Blood Pressure [Left Arm] Blood Pressure Mean 95 Blood Pressure Mean [Left Arm] Blood Pressure Position [Left Arm] Pulse Oximetry Oxygen Delivery Method Sepsis Recent Fever Within 48 Hours Sepsis New/Unexplained Change in Mental Status Sepsis Action Taken by Skilled Nursing Medications Current Medication List: was personally reviewed by me Laboratory Data Attestation: I reviewed the patient's lab results. 08/18/23 07:14 08/18/23 07:14 Lab Results 08/15/23 08/15/23 08/15/23 Range/Units 14:00 14:45 14:50 WBC 6.55 (4.8-10.8) K/ul RBC 4.39 L (4.70-6.10) M/uL Hgb 13.4 L (14.0-18.0) g/dl Hct 39.1 L (42.0-52.0) % MCV 89.1 (80.0-100.0) fL MCH 30.5 (25.0-34.0) pg MCHC 34.3 (32.0-36.0) g/dL RDW Std Deviation 45.9 (36.4-46.3) fL RDW Coeff of Kyrie 14.1 (11.5-14.5) % Plt Count 164 (130-400) K/uL MPV 10.2 (9.4-12.4) fL Immature Gran % (Auto) 0.3 % Neut % (Auto) 77.7 % Lymph % (Auto) 10.2 % [place]ne % (Auto) 11.3 % Eos % (Auto) 0.2 % Baso % (Auto) 0.3 % Neut # (Auto) 5.09 (1.40-6.50) K/uL Lymph # (Auto) 0.67 L (1.20-3.40) K/uL Duc[place]ne # (Auto) 0.74 H (0.11-0.59) K/uL Eos # (Auto) 0.01 (0.00-0.50) K/uL Baso # (Auto) 0.02 (0.00-0.20) K/uL Immature Gran # (Auto) 0.02 (0.01-0.20) K/uL Sodium 135 L (136-145) mmol/L Potassium 3.1 L (3.5-5.1) mmol/L Chloride 109 H (98-107) mmol/L Carbon Dioxide 15 L (21-32) mmol/L Anion Gap 11 (3-11) BUN 26 H (6-23) mg/dl Creatinine 2.59 H (0.6-1.4) mg/dl Est Cr Clr Drug Dosing 19.7 ml/min Est GFR ( Amer) 26.5 ml/min Est GFR (Non-Af Amer) 22.9 ml/min BUN/Creatinine Ratio 10.0 (10-20) Glucose 98 (70-99(Fasting)) mg/dl Lactate 1.6 (0.4-2.0) mmol/L Calcium 8.6 (8.6-10.3) mg/dl Phosphorus (2.5-4.9) mg/dl Magnesium (1.7-2.4) mg/dl Total Bilirubin 0.6 (0.2-1.0) mg/dl AST 18 (13-39) U/L ALT 11 (7-52) U/L Alkaline Phosphatase 83 (34-104) U/L Total Protein 6.9 (6.0-8.3) gm/dl Albumin 4.0 (3.4-5.0) gm/dl Globulin 2.9 (2.5-4.0) gm/dl Albumin/Globulin Ratio 1.4 (0.9-2) Lipase 21 (11-82) U/L Procalcitonin 0.17 (0-0.5) ng/ml Urine Color [place] Urine Appearance Cloudy A (Clear) Urine pH 7.0 (4.5-7.5) Ur Specific [place] 1.012 (1.000-1.030) Urine Protein 2+ H (Negative) Urine Glucose (UA) Negative (Negative) Urine Ketones Negative (Negative) Urine Blood 3+ H (Negative) Urine Nitrite Negative (Negative) Urine Bilirubin Negative (Negative) Urine Urobilinogen Negative (Negative) Ur Leukocyte Esterase Trace H (Negative) Urine WBC (Auto) 5-10 H (0-5) /hpf Urine RBC (Auto) >30 H (0-4) /hpf U Hyaline Cast (Auto) 1-5 (0-5) /lpf U Epithel Cells (Auto) 20-30 H (0-5) /lpf Urine Bacteria (Auto) Negative (Negative) Nasal Influ A H1 2008 PCR DETECTED A* (NotDetected) Adenovirus (PCR) Not Detected (NotDetected) B. pertussis DNA (PCR) Not Detected (NotDetected) B.parapertussis DNA PCR Not Detected (NotDetected) C. pneumoniae DNA (PCR) Not Detected (NotDetected) Coronavirus OC43 (PCR) Not Detected (NotDetected) Coronavirus HKU1 (PCR) Not Detected (NotDetected) Coronavirus 229E (PCR) Not Detected (NotDetected) SARS-CoV-2 (PCR) Not Detected (NotDetected) Coronavirus NL63 (PCR) Not Detected (NotDetected) Human Metapneumovir PCR Not Detected (NotDetected) Influenza Type B (PCR) Not Detected (NotDetected) M. pneumoniae (PCR) Not Detected (NotDetected) Parainfluenza 1 (PCR) Not Detected (NotDetected) Parainfluenza 2 (PCR) Not Detected (NotDetected) Parainfluenza 3 (PCR) Not Detected (NotDetected) Parainfluenza 4 (PCR) Not Detected (NotDetected) RSV (PCR) Not Detected (NotDetected) Entero/Rhino (PCR) Not Detected (NotDetected) 08/15/23 Range/Units 18:23 WBC (4.8-10.8) K/ul RBC (4.70-6.10) M/uL Hgb (14.0-18.0) g/dl Hct (42.0-52.0) % MCV (80.0-100.0) fL MCH (25.0-34.0) pg MCHC (32.0-36.0) g/dL RDW Std Deviation (36.4-46.3) fL RDW Coeff of Kyrie (11.5-14.5) % Plt Count (130-400) K/uL MPV (9.4-12.4) fL Immature Gran % (Auto) % Neut % (Auto) % Lymph % (Auto) % [place] % (Auto) % Eos % (Auto) % Baso % (Auto) % Neut # (Auto) (1.40-6.50) K/uL Lymph # (Auto) (1.20-3.40) K/uL [place] # (Auto) (0.11-0.59) K/uL Eos # (Auto) (0.00-0.50) K/uL Baso # (Auto) (0.00-0.20) K/uL Immature Gran # (Auto) (0.01-0.20) K/uL Sodium (136-145) mmol/L Potassium (3.5-5.1) mmol/L Chloride (98-107) mmol/L Carbon Dioxide (21-32) mmol/L Anion Gap (3-11) BUN (6-23) mg/dl Creatinine (0.6-1.4) mg/dl Est Cr Clr Drug Dosing ml/min Est GFR ( Amer) ml/min Est GFR (Non-Af Amer) ml/min BUN/Creatinine Ratio (10-20) Glucose (70-99(Fasting)) mg/dl Lactate (0.4-2.0) mmol/L Calcium (8.6-10.3) mg/dl Phosphorus 3.9 (2.5-4.9) mg/dl Magnesium 1.7 (1.7-2.4) mg/dl Total Bilirubin (0.2-1.0) mg/dl AST (13-39) U/L ALT (7-52) U/L Alkaline Phosphatase (34-104) U/L Total Protein (6.0-8.3) gm/dl Albumin (3.4-5.0) gm/dl Globulin (2.5-4.0) gm/dl Albumin/Globulin Ratio (0.9-2) Lipase (11-82) U/L Procalcitonin (0-0.5) ng/ml Urine Color Urine Appearance (Clear) Urine pH (4.5-7.5) Ur Specific [place] (1.000-1.030) Urine Protein (Negative) Urine Glucose (UA) (Negative) Urine Ketones (Negative) Urine Blood (Negative) Urine Nitrite (Negative) Urine Bilirubin (Negative) Urine Urobilinogen (Negative) Ur Leukocyte Esterase (Negative) Urine WBC (Auto) (0-5) /hpf Urine RBC (Auto) (0-4) /hpf U Hyaline Cast (Auto) (0-5) /lpf U Epithel Cells (Auto) (0-5) /lpf Urine Bacteria (Auto) (Negative) Nasal Influ A H1 2009 PCR (NotDetected) Adenovirus (PCR) (NotDetected) B. pertussis DNA (PCR) (NotDetected) B.parapertussis DNA PCR (NotDetected) C. pneumoniae DNA (PCR) (NotDetected) Coronavirus OC43 (PCR) (NotDetected) Coronavirus HKU1 (PCR) (NotDetected) Coronavirus 229E (PCR) (NotDetected) SARS-CoV-2 (PCR) (NotDetected) Coronavirus NL63 (PCR) (NotDetected) Human Metapneumovir PCR (NotDetected) Influenza Type B (PCR) (NotDetected) M. pneumoniae (PCR) (NotDetected) Parainfluenza 1 (PCR) (NotDetected) Parainfluenza 2 (PCR) (NotDetected) Parainfluenza 3 (PCR) (NotDetected) Parainfluenza 4 (PCR) (NotDetected) RSV (PCR) (NotDetected) Entero/Rhino (PCR) (NotDetected) Administered Medications Acetaminophen (Acetaminophen 325 Mg Tab) 650 mg PO Q4H PRN PRN Reason: pain or fever Stop: 09/14/23 23:38 Last Admin: 08/17/23 07:55 Dose: 650 mg Documented By: ROWAN Escitalopram Oxalate (Escitalopram Oxalate 10 Mg Tab) 10 mg PO HS [facility] Stop: 09/14/23 23:38 Last Admin: 08/17/23 19:53 Dose: 10 mg Documented By: Admin: 08/16/23 19:27 Dose: 10 mg Documented By: Admin: 08/16/23 00:09 Dose: 10 mg Documented By: CEF Ciprofloxacin (Cipro / D5w) 400 mg in 200 mls @ 100 mls/hr IV Q24H [facility]; Protocol Stop: 08/26/23 07:59 Last Infusion: 08/18/23 09:51 Dose: Infused Documented By: Admin: 08/18/23 07:50 Dose: 100 mls/hr Documented By: Infusion: 08/17/23 10:01 Dose: Infused Documented By: Admin: 08/17/23 07:57 Dose: 100 mls/hr Documented By: Infusion: 08/16/23 10:44 Dose: Infused Documented By: Admin: 08/16/23 08:42 Dose: 100 mls/hr Documented By: LIZ Potassium Chloride/Dextrose/Sod Cl (D5nss + 20meq Kcl) 20 meq in 1,000 mls @ 80 mls/hr IV .[id number] [facility]; Protocol Stop: 09/15/23 07:59 Last Admin: 08/18/23 01:07 Dose: 80 mls/hr Documented By: Infusion: 08/18/23 01:07 Dose: Infused Documented By: Admin: 08/17/23 13:48 Dose: 80 mls/hr Documented By: Infusion: 08/17/23 13:48 Dose: Infused Documented By: Infusion: 08/17/23 12:03 Dose: 0 mls/hr Documented By: Admin: 08/16/23 19:26 Dose: 60 mls/hr Documented By: Infusion: 08/16/23 19:22 Dose: Infused Documented By: Infusion: 08/16/23 17:43 Dose: 60 mls/hr Documented By: Admin: 08/16/23 08:42 Dose: 100 mls/hr Documented By: LIZ Levothyroxine Sodium (Levothyroxine Sodium 88 Mcg Tablet) 88 mcg PO DAILYBB [facility] Stop: 09/15/23 06:29 Last Admin: 08/18/23 05:30 Dose: 88 mcg Documented By: Admin: 08/17/23 05:41 Dose: 88 mcg Documented By: Admin: 08/16/23 05:45 Dose: 88 mcg Documented By: CEF Discontinued Medications Acetaminophen (Acetaminophen 500 Mg Tab) 1,000 mg PO NOW STA Stop: 08/15/23 13:41 Last Admin: 08/15/23 14:49 Dose: 1,000 mg Documented By: TELMA Fentanyl Citrate (Fentanyl Citrate Pf 100 Mcg/2 Ml Vial) Confirm Administered Dose 100 mcg .ROUTE .STK-MED ONE Stop: 08/17/23 12:31 Last Admin: 08/17/23 13:51 Dose: Not Given Documented By: ROWAN Sodium Chloride (Nss) 500 mls @ 999 mls/hr IV .Q31M STA Stop: 08/15/23 14:10 Last Infusion: 08/15/23 18:18 Dose: Infused Documented By: Admin: 08/15/23 15:17 Dose: 999 mls/hr Documented By: DS Sodium Chloride (Nss) 1,000 mls @ 999 mls/hr IV .Q1H1M RONEL Stop: 08/15/23 18:10 Last Infusion: 08/15/23 19:43 Dose: Infused Documented By: Admin: 08/15/23 18:37 Dose: 999 mls/hr Documented By: ZAHRA Cefepime HCl (Maxipime) 20 mls @ 5 mls/min IV NOW ONE Stop: 08/15/23 18:18 Last Admin: 08/15/23 18:37 Dose: 5 mls/min Documented By: ZAHRA Ceftriaxone Sodium 1,000 mg/ (Dextrose) 50 mls @ 100 mls/hr IV Q24H RONEL; Protocol Stop: 08/21/23 05:59 Last Infusion: 08/16/23 06:13 Dose: Infused Documented By: Admin: 08/16/23 05:45 Dose: 100 mls/hr Documented By: CEF Lactated Ringer's (Lr) 1,000 mls @ 100 mls/hr IV .Q10H RONEL Stop: 08/16/23 19:38 Last Infusion: 08/16/23 07:59 Dose: Infused Documented By: Infusion: 08/16/23 06:13 Dose: 100 mls/hr Documented By: Infusion: 08/16/23 05:45 Dose: 0 mls/hr Documented By: Admin: 08/15/23 23:54 Dose: 100 mls/hr Documented By: CEF Ioversol (Optiray 320 500ml) 84 ml IV ONCE ONE Stop: 08/15/23 15:46 Last Admin: 08/15/23 15:45 Dose: 84 ml Documented By: ANAY Potassium Chloride (Potassium Chloride Crtab 20 Meq Tabcr) 20 meq PO NOW STA Stop: 08/15/23 23:40 Last Admin: 08/16/23 00:13 Dose: 20 meq Documented By: CEF Sodium Bicarbonate (Sodium Bicarbonate 650 Mg Tab) 650 mg PO NOW STA Stop: 08/15/23 23:40 Last Admin: 08/16/23 00:09 Dose: 650 mg Documented By: CEF Imaging Data Radiologist's Impression: Abdomen/Pelvis CT 08/15/23 13:41 CT SCAN OF THE ABDOMEN AND PELVIS WITH IV CONTRAST CLINICAL HISTORY: Fever. Right flank pain. COMPARISON STUDY: Abdominal CT scans dated 09/10/2019 and 01/24/2023. TECHNIQUE: Following the IV administration of 84 cc of Optiray 320, CT scan of the abdomen and pelvis is performed from the lung bases to the proximal femora. Images are reviewed in the axial, sagittal, and coronal planes. IV contrast was administered without complication. A dose lowering technique was utilized adhering to the principles of ALARA. CT DOSE: 450.8 mGy.cm FINDINGS: Lung bases: The heart is normal in size and without pericardial effusion. The lung bases are clear. There is a small hiatal hernia. Liver: The contrast-enhanced liver is normal in size, contour, and attenuation. There is no intrahepatic biliary ductal dilatation. The hepatic veins and portal veins are patent. A 1.6 cm hepatic cyst is unchanged. Gallbladder: There are layering calcified gallstones without CT evidence of acute cholecystitis. Spleen: Normal in size and attenuation. Pancreas: Unremarkable. Adrenal glands: Unremarkable. Kidneys: There is asymmetric cortical atrophy of the left kidney as compared to the right. A right ureteral stent is in place. No calcifications are identified in the right ureter along the course of the stent. There is no hydronephrosis. There is heterogeneously diminished enhancement of the left kidney as compared to the right. There are numerous (approximately 10) nonobstructing right renal calculi which measure up to 9 mm. Nonobstructing left renal calculi measuring up to 6 mm. No left ureteral stone is seen. There is a 1.5 cm cyst in the left upper pole. Additional subcentimeter cortical hypodensities also likely represent cysts but are too small for definitive characterization. Abdominal vasculature: There is advanced atherosclerotic plaque and mild ectasia of the abdominal aorta. Bowel: Postsurgical change is noted at the ileocecal junction. No bowel obstruction is seen. The appendix is surgically absent. Peritoneum/retroperitoneum: There is no intraperitoneal free air or abdominal ascites. There is a multiloculated minimally complex right retroperitoneal fluid collection between the right kidney and the right psoas muscle. This approximates the ureteral stent on image #162. This measures approximately 15.5 x 10.5 x 3 cm in aggregate dimension. Lymphadenopathy: None. Pelvic viscera: The bladder wall appears mildly thickened. The bladder contains the distal end of a left ureteral stent. Trace free fluid is seen in the pelvis. The prostate gland is enlarged and heterogeneous. Skeletal structures: No lytic or blastic lesions are seen. IMPRESSION: 1. A right ureteral stent is in place. No stones are identified in the right ureter along the course of the stent and there is no hydronephrosis. 2. Bilateral nephrolithiasis as above. 3. There is an approximately 15.5 x 10.5 x 3 cm multiloculated minimally complex right retroperitoneal fluid collection as detailed above. This is indeterminate, but new from the 01/24/[address] scan. This may represent a resolving retroperitoneal hemorrhage or possibly a urinoma. The sterility of this fluid cannot be assessed by imaging. 4. The bladder wall appears thickened. Correlate with clinical findings and urinalysis. 5. Cholelithiasis without CT evidence of acute cholecystitis. 6. Additional findings as above. ACT 112: Negative or not required by law. Electronically signed by: Jewel Yepez M.D. 08/15/2023 4:53 PM Chest X-Ray 08/15/23 13:41 SINGLE VIEW CHEST CLINICAL HISTORY: Fever FINDINGS: A PA chest radiograph is compared to study dated 02/26/2023. The cardiomediastinal silhouette is unremarkable noting atherosclerotic calcification of the thoracic aorta. There is mild chronic elevation of the right hemidiaphragm. There are scattered calcified granulomas. The lungs and pleural spaces are otherwise clear. No pneumothorax is seen. The skeletal structures are osteopenic. The bony 4 is grossly intact. IMPRESSION: No active disease in the chest. ACT 112: Negative or not required by law. Electronically signed by: Jewel Yepez M.D. 08/15/2023 3:02 PM Discharge Plan Visit Data Chief Complaint: Illness Stated Complaint: FEVER, URINARY FREQUENCY ED Provider: Shira Rosales Discharge Problem: Retroperitoneal fluid collection, S/P ureteral stent placement, Influenza, Fever Patient Disposition: Admitted As Inpatient Discharge Instructions Interventions: ED Discharge Assessment Last Done: 08/15/23 23:13 Discharge Problem: Fever Qualifiers: Fever type: due to other condition Qualified Code(s): R50.81 - Fever presenting with conditions classified elsewhere
--- NOTE | 2023-08-15 19:50 | History & Physical Report ---
Date of Service August 15, 2023 Assessment & Plan (1) Retroperitoneal fluid collection: Plan: 77yo male presenting with weakness, fatigue and cough. He has had several days of reported rigors at home and fever of 102.5 today prior to arrival. Ddx to include Influenza A infection. Patient found to have retroperitoneal fluid collection on CT - ?resolving bleed vs urinoma, possible infection?. He denies flank pain or back pain. H/H is stable. -Empiric Ceftriaxone -Urology consultation appreciated -May benefit from re-imaging prior to discharge to ensure stability/improvement -NPO after midnight tonight for possible intervention/drainage? (2) Influenza A: Plan: Patient found to have Influenza A which may be source of his presenting symptoms. No SOB or hypoxia. No wheeze appreciated on exam. -Supportive care - Tylenol, Robitussin PRN -Maintain droplet precautions -Will hold off on Tamiflu given patient's renal compromise (3) Stage 3b chronic kidney disease: Plan: MANOLO on CKD with BUN of 26, Cr of 2.59. Patient reports ongoing hematuria since stent placement. No difficulty passing urine. UA with blood and protein, negative for bacteria. -Check urine culture -Empiric Ceftriaxone for now -Check urine Na and Cr -Will give additional dose of NaHCO3 now then resume daily dosing -Hold Lisinopril -Repeat chemistry in AM (4) Crohns disease: Plan: Chronic. Stable (5) Hypothyroid: Plan: Chronic. Stable -Continue Synthroid 88mcg po daily -Will check TSH with AM labs - last 11/2020 History of Present Illness Chief Complaint: Weakness fatigue and cough Primary Care Provider: Tyler Brandt Ba Goodman is a pleasant 77-year-old male previous presenting with fatigue, myalgias, dry cough, poor appetite and rigors. Patient is seen with his and daughter at bedside. Patient with history of nephrolithiasis for which he follows with urology. On 08/02/2023 had a cystoscopy with laser destruction of stones with placement of a right-sided ureteral stent. Patient reports that the procedure went well but h as been having significant discomfort at the stent site since its placement. He reports he has been unable to sit for prolonged periods of time due to right groin pain. Over the past 6 days patient has been experiencing "shaking spells" he has also had dry cough, fatigue, myalgias and poor appetite. Patient had an appointment with urology today in clinic to have his stent removed. Patient reported his symptoms and it was decided to hold off on stent removal due to concern for infection. Patient is to return to urology in 10 days for stent removal. Patient's daughter checked on him later in the day and he was found to have a fever of 102.5 therefore he came to the ER. Additionally, patient reports ongoing hematuria but normal urine output and no difficulty passing urine. He denies nausea, vomiting, back pain, diarrhea. No additional complaints at this time In the ER, he is afebrile, hemodynamically stable, no acute distress ER course: Cefepime Normal saline x 1500 mL Tylenol 1 g Patient EKG Allergies Allergy/AdvReac Type Severity Reaction Status Date / Time azathioprine [From Imuran] Allergy Severe THROAT Verified 08/15/23 19:40 TIGHT AND TROUBLE BREATHING infliximab [From Remicade] Allergy Severe throat Verified 08/15/23 19:40 swells, tightness in chest Home Medications Medication Instructions Recorded Confirmed Type escitalopram oxalate 10 mg tablet 10 mg PO HS 06/08/23 08/15/23 History (Lexapro) levothyroxine 88 mcg tablet 88 mcg PO QAM 06/08/23 08/15/23 History cholecalciferol (vitamin D3) 25 25 mcg PO QAM 07/27/23 08/15/23 History mcg (1,000 unit) tablet (Vitamin D3) lisinopril 5 mg tablet 5 mg PO QAM 07/27/23 08/15/23 History sodium bicarbonate 650 mg tablet 650 mg PO QAM 07/27/23 08/15/23 History ciprofloxacin HCl 500 mg tablet 500 mg PO Q12H #15 tabs 08/15/23 08/15/23 Rx (Cipro) Past Med/Surg History Medical History Hyperglycemia Hgb A1C 5.1 on 02/27/23 Kidney stones Anxiety C. difficile diarrhea dx 01/2023- completed vancomycin, symptoms resolved Complex renal cyst Chronic kidney disease, stage 3a Follows with Dr Parmar last seen 05/2023 DVT (deep venous thrombosis) 07/2019- s/p bowel obstruction- was on Eliquis- has since been d/c'ed- no issues since History of lung cancer 2018- right lobe s/p right upper lobectomy- no chemo or XRT Follows with pulm Neuropathic pain Hands and feet Crohns disease (~1985) Stable at this time - follows only with PCP Hypothyroid Surgical History S/P cystoscopy with ureteral stent placement x2; w/laser destruction kidney stone History of esophagogastroduodenoscopy (EGD) History of anesthesia reaction "woke up during last couple colonoscopies, was uncomfortable and could feel procedure" states no issues after last colonoscopy Status post lobectomy of lung (02/07/19) Right upper lobectomy Dr. Tucker 02-07-19 History of bronchoscopy History of colonoscopy History of appendectomy History of neck surgery bone spur removal--normal ROM History of bowel resection (~1989) DUE TO CROHNS Family History Father Heart disease Nephrolithiasis Other No family history of adverse response to anesthesia Denies family history of Crohn's disease Cancer Ulcerative colitis Social History Smoking Status: Never smoker Second Hand Exposure: No; Do You Dip or Chew Tobacco: No; Hx Alcohol Use: No Hx Substance Use: No Preferred Language: [place] Island[place] Communication Ability: Effective Visual Impairment: No Limitations Can Labeler Required: No Beliefs That Will Affect Care: None Current Living Situation: Spouse Feels Safe at Home: Yes Assistive Devices: Denture - Upper and Glasses Review of Systems Review of Systems: All systems reviewed & are unremarkable except as noted in HPI & below Physical Exam Physical Exam: General: patient resting comfortably, NAD, non-toxic in appearance, AA&O x 4 Skin: warm, dry, intact, no rashes or lesions HEENT: NC/AT, PERRL, EOMI, anicteric sclera, conjunctiva without injection, external ear normal to inspection and nontender, nares patent, moist mucus membranes, dentition intact, no oropharyngeal lesions, neck supple, trachea midline, no LAD, no thyromegaly, no JVD Heart: +S1/S2, regular, no m/r/g Lungs: equal air entry bilaterally, no rales/rhonchi/wheezes Abd: +BS, soft, NT/ND, no masses/organomegaly/ascites Ext: warm, 2+ pulses in UE/LE bilaterally, no clubbing/cyanosis or edema Neuro: nonfocal, patient AA&O x 4, speech intact, no facial droop, moving all extremities on command with equal strength 5/5 Results & Data Results & Data Vital Signs (Past 12 Hours) Vital Signs Temp Pulse Pulse Resp BP BP Pulse Ox 08/15/23 19:30 56 L 21 08/15/23 19:20 55 L 22 08/15/23 19:10 55 L 19 08/15/23 19:00 122/61 08/15/23 19:00 57 L 21 08/15/23 18:52 54 L 08/15/23 18:50 56 L 21 08/15/23 18:49 54 L 22 08/15/23 18:46 08/15/23 16:38 37.4 C 63 18 126/65 97 08/15/23 13:36 38.0 C H 80 22 128/71 99 O2 Del Method 08/15/23 19:30 08/15/23 19:20 08/15/23 19:10 08/15/23 19:00 08/15/23 19:00 08/15/23 18:52 08/15/23 18:50 08/15/23 18:49 08/15/23 18:46 Room Air 08/15/23 16:38 Room Air 08/15/23 13:36 Room Air Laboratory Results Laboratory Results WBC 6.55 K/ul (4.8-10.8) 08/15/23 14:50 RBC 4.39 M/uL (4.70-6.10) L 08/15/23 14:50 Hgb 13.4 g/dl (14.0-18.0) L 08/15/23 14:50 Hct 39.1 % (42.0-52.0) L 08/15/23 14:50 MCV 89.1 fL (80.0-100.0) 08/15/23 14:50 MCH 30.5 pg (25.0-34.0) 08/15/23 14:50 MCHC 34.3 g/dL (32.0-36.0) 08/15/23 14:50 RDW Std Deviation 45.9 fL (36.4-46.3) 08/15/23 14:50 RDW Coeff of Kyrie 14.1 % (11.5-14.5) 08/15/23 14:50 Plt Count 164 K/uL (130-400) 08/15/23 14:50 MPV 10.2 fL (9.4-12.4) 08/15/23 14:50 Immature Gran % (Auto) 0.3 % 08/15/23 14:50 Neut % (Auto) 77.7 % 08/15/23 14:50 Lymph % (Auto) 10.2 % 08/15/23 14:50 [place] % (Auto) 11.3 % 08/15/23 14:50 Eos % (Auto) 0.2 % 08/15/23 14:50 Baso % (Auto) 0.3 % 08/15/23 14:50 Neut # (Auto) 5.09 K/uL (1.40-6.50) 08/15/23 14:50 Lymph # (Auto) 0.67 K/uL (1.20-3.40) L 08/15/23 14:50 [place] # (Auto) 0.74 K/uL (0.11-0.59) H 08/15/23 14:50 Eos # (Auto) 0.01 K/uL (0.00-0.50) 08/15/23 14:50 Baso # (Auto) 0.02 K/uL (0.00-0.20) 08/15/23 14:50 Immature Gran # (Auto) 0.02 K/uL (0.01-0.20) 08/15/23 14:50 Sodium 135 mmol/L (136-145) L 08/15/23 14:50 Potassium 3.1 mmol/L (3.5-5.1) L 08/15/23 14:50 Chloride 109 mmol/L (98-107) H 08/15/23 14:50 Carbon Dioxide 15 mmol/L (21-32) L 08/15/23 14:50 Anion Gap 11 (3-11) 08/15/23 14:50 BUN 26 mg/dl (6-23) H 08/15/23 14:50 Creatinine 2.59 mg/dl (0.6-1.4) H 08/15/23 14:50 Est Cr Clr Drug Dosing 19.7 ml/min 08/15/23 14:50 Est GFR ( Amer) 26.5 ml/min 08/15/23 14:50 Est GFR (Non-Af Amer) 22.9 ml/min 08/15/23 14:50 BUN/Creatinine Ratio 10.0 (10-20) 08/15/23 14:50 Glucose 98 mg/dl (70-99(Fasting)) 08/15/23 14:50 Lactate 1.6 mmol/L (0.4-2.0) 08/15/23 14:50 Calcium 8.6 mg/dl (8.6-10.3) 08/15/23 14:50 Total Bilirubin 0.6 mg/dl (0.2-1.0) 08/15/23 14:50 AST 18 U/L (13-39) 08/15/23 14:50 ALT 11 U/L (7-52) 08/15/23 14:50 Alkaline Phosphatase 83 U/L (34-104) 08/15/23 14:50 Total Protein 6.9 gm/dl (6.0-8.3) 08/15/23 14:50 Albumin 4.0 gm/dl (3.4-5.0) 08/15/23 14:50 Globulin 2.9 gm/dl (2.5-4.0) 08/15/23 14:50 Albumin/Globulin Ratio 1.4 (0.9-2) 08/15/23 14:50 Lipase 21 U/L (11-82) 08/15/23 14:50 Procalcitonin 0.17 ng/ml (0-0.5) 08/15/23 14:50 Urine Color [place] 08/15/23 14:00 Urine Appearance Cloudy (Clear) A 08/15/23 14:00 Urine pH 7.0 (4.5-7.5) 08/15/23 14:00 Ur Specific [place] 1.012 (1.000-1.030) 08/15/23 14:00 Urine Protein 2+ (Negative) H 08/15/23 14:00 Urine Glucose (UA) Negative (Negative) 08/15/23 14:00 Urine Ketones Negative (Negative) 08/15/23 14:00 Urine Blood 3+ (Negative) H 08/15/23 14:00 Urine Nitrite Negative (Negative) 08/15/23 14:00 Urine Bilirubin Negative (Negative) 08/15/23 14:00 Urine Urobilinogen Negative (Negative) 08/15/23 14:00 Ur Leukocyte Esterase Trace (Negative) H 08/15/23 14:00 Urine WBC (Auto) 5-10 /hpf (0-5) H 08/15/23 14:00 Urine RBC (Auto) >30 /hpf (0-4) H 08/15/23 14:00 U Hyaline Cast (Auto) 1-5 /lpf (0-5) 08/15/23 14:00 U Epithel Cells (Auto) 20-30 /lpf (0-5) H 08/15/23 14:00 Urine Bacteria (Auto) Negative (Negative) 08/15/23 14:00 Nasal Influ A H1 2009 PCR DETECTED (NotDetected) A* 08/15/23 14:45 Adenovirus (PCR) Not Detected (NotDetected) 08/15/23 14:45 B. pertussis DNA (PCR) Not Detected (NotDetected) 08/15/23 14:45 B.parapertussis DNA PCR Not Detected (NotDetected) 08/15/23 14:45 C. pneumoniae DNA (PCR) Not Detected (NotDetected) 08/15/23 14:45 Coronavirus OC43 (PCR) Not Detected (NotDetected) 08/15/23 14:45 Coronavirus HKU1 (PCR) Not Detected (NotDetected) 08/15/23 14:45 Coronavirus 229E (PCR) Not Detected (NotDetected) 08/15/23 14:45 SARS-CoV-2 (PCR) Not Detected (NotDetected) 08/15/23 14:45 Coronavirus NL63 (PCR) Not Detected (NotDetected) 08/15/23 14:45 Human Metapneumovir PCR Not Detected (NotDetected) 08/15/23 14:45 Influenza Type B (PCR) Not Detected (NotDetected) 08/15/23 14:45 M. pneumoniae (PCR) Not Detected (NotDetected) 08/15/23 14:45 Parainfluenza 1 (PCR) Not Detected (NotDetected) 08/15/23 14:45 Parainfluenza 2 (PCR) Not Detected (NotDetected) 08/15/23 14:45 Parainfluenza 3 (PCR) Not Detected (NotDetected) 08/15/23 14:45 Parainfluenza 4 (PCR) Not Detected (NotDetected) 08/15/23 14:45 RSV (PCR) Not Detected (NotDetected) 08/15/23 14:45 Entero/Rhino (PCR) Not Detected (NotDetected) 08/15/23 14:45 Impressions Abdomen/Pelvis CT 08/15/23 13:41 CT SCAN OF THE ABDOMEN AND PELVIS WITH IV CONTRAST CLINICAL HISTORY: Fever. Right flank pain. COMPARISON STUDY: Abdominal CT scans dated 09/10/2019 and 01/24/2023. TECHNIQUE: Following the IV administration of 84 cc of Optiray 320, CT scan of the abdomen and pelvis is performed from the lung bases to the proximal femora. Images are reviewed in the axial, sagittal, and coronal planes. IV contrast was administered without complication. A dose lowering technique was utilized adhering to the principles of ALARA. CT DOSE: 450.8 mGy.cm FINDINGS: Lung bases: The heart is normal in size and without pericardial effusion. The lung bases are clear. There is a small hiatal hernia. Liver: The contrast-enhanced liver is normal in size, contour, and attenuation. There is no intrahepatic biliary ductal dilatation. The hepatic veins and portal veins are patent. A 1.6 cm hepatic cyst is unchanged. Gallbladder: There are layering calcified gallstones without CT evidence of acut e cholecystitis. Spleen: Normal in size and attenuation. Pancreas: Unremarkable. Adrenal glands: Unremarkable. Kidneys: There is asymmetric cortical atrophy of the left kidney as compared to the right. A right ureteral stent is in place. No calcifications are identified in the right ureter along the course of the stent. There is no hydronephrosis. There is heterogeneously diminished enhancement of the left kidney as compared to the right. There are numerous (approximately 10) nonobstructing right renal calculi which measure up to 9 mm. Nonobstructing left renal calculi measuring up to 6 mm. No left ureteral stone is seen. There is a 1.5 cm cyst in the left upper pole. Additional subcentimeter cortical hypodensities also likely represent cysts but are too small for definitive characterization. Abdominal vasculature: There is advanced atherosclerotic plaque and mild ectasia of the abdominal aorta. Bowel: Postsurgical change is noted at the ileocecal junction. No bowel obstruc tion is seen. The appendix is surgically absent. Peritoneum/retroperitoneum: There is no intraperitoneal free air or abdominal ascites. There is a multiloculated minimally complex right retroperitoneal fluid collection between the right kidney and the right psoas muscle. This approximates the ureteral stent on image #162. This measures approximately 15.5 x 10.5 x 3 cm in aggregate dimension. Lymphadenopathy: None. Pelvic viscera: The bladder wall appears mildly thickened. The bladder contains the distal end of a left ureteral stent. Trace free fluid is seen in the pelvis. The prostate gland is enlarged and heterogeneous. Skeletal structures: No lytic or blastic lesions are seen. IMPRESSION: 1. A right ureteral stent is in place. No stones are identified in the right ureter along the course of the stent and there is no hydronephrosis. 2. Bilateral nephrolithiasis as above. 3. There is an approximately 15.5 x 10.5 x 3 cm multiloculated minimally complex right retroperitoneal fluid collection as detailed above. This is indeterminate, but new from the 01/24/[address] scan. This may represent a resolving retroperitoneal hemorrhage or possibly a urinoma. The sterility of this fluid cannot be assessed by imaging. 4. The bladder wall appears thickened. Correlate with clinical findings and urinalysis. 5. Cholelithiasis without CT evidence of acute cholecystitis. 6. Additional findings as above. ACT 112: Negative or not required by law. Electronically signed by: Jewel Yepez M.D. 08/15/2023 4:53 PM Chest X-Ray 08/15/23 13:41 SINGLE VIEW CHEST CLINICAL HISTORY: Fever FINDINGS: A PA chest radiograph is compared to study dated 02/26/2023. The cardiomediastinal silhouette is unremarkable noting atherosclerotic calcification of the thoracic aorta. There is mild chronic elevation of the right hemidiaphragm. There are scattered calcified granulomas. The lungs and pleural spaces are otherwise clear. No pneumothorax is seen. The skeletal structures are osteopenic. The bony 4 is grossly intact. ACT 112: Negative or not required by law. Electronically signed by: Jewel Yepez M.D. 08/15/2023 3:02 PM PG Care Time/CCT Total # of Minutes Spent Total Time Spent with Patient: Total time spent is greater than 50% in coordination of care (as documented) at patient's floor/unit and/or counseling patient: Coding Level of Care Code 28289 INT INP/OBS CARE 2/55MIN Diagnoses Retroperitoneal fluid collection R18.8 Influenza A J10.1 Stage 3b chronic kidney disease N18.32 Crohns disease K50.90 Hypothyroid E03.9
[2023-08-15] MEDS ORDERED: POTASSIUM CHLORIDE CRTAB 20 MEQ TABCR PO STA (23:39)
[2023-08-15] MEDS ORDERED: guaiFENesin/DEXTROM SYRUP 200MG/20MG 10ML UDC PO PRN (23:39)
[2023-08-15] MEDS ORDERED: LACTATED RINGER'S 1,000 ML IV SCH (23:39)
[2023-08-15] MEDS ORDERED: ACETAMINOPHEN 325 MG TAB PO PRN (23:39)
[2023-08-15] MEDS ORDERED: SODIUM BICARBONATE 650 MG TAB PO STA (23:39)
[2023-08-16] MEDS: ESCITALOPRAM OXALATE 10 MG TAB PO SCH ×2 (00:09→19:27)
[2023-08-16 00:31] LABS: Magnesium 1.7 mg/dl (1.7-2.4); Phosphorus 3.9 mg/dl (2.5-4.9)
[2023-08-16 00:44] LABS: Creatinine Urine Random 35.2 mg/dl
[2023-08-16] MEDS: LEVOTHYROXINE SODIUM 88 MCG TABLET PO SCH (05:45)
[2023-08-16] MEDS ORDERED: cefTRIAXone SODIUM 1,000 MG in DEXTROSE 5 % MINI-B 50 ML IV SCH (06:00)
[2023-08-16 07:30] LABS: Hematocrit (blood only) 32.9 % (42.0-52.0); Hemoglobin 11.2 g/dl (14.0-18.0); Mean Corpuscular Hemoglobin 30.1 pg (25.0-34.0); Mean Corpuscular Volume 88.4 fL (80.0-100.0); Mean Platelet Volume 10.1 fL (9.4-12.4); Platelet Count 141 K/uL (130-400); RDW Standard Deviation 45.3 fL (36.4-46.3); Red Blood Count 3.72 M/uL (4.70-6.10); White Blood Count 5.15 K/ul (4.8-10.8)
[2023-08-16 07:44] LABS: BUN Creatinine Ratio 11.5 (10-20); Creatinine Clr Calc Pharmacy 21.8 ml/min; Est GFR (African American) 29.8 ml/min; Est GFR (Non-African American) 25.7 ml/min; Potassium 3.4 mmol/L (3.5-5.1)
[2023-08-16 08:00] LABS: Thyroid Stimulating Hormone 0.355 uIu/ml (0.300-4.500)
[2023-08-16] MEDS: CIPROFLOXACIN / D5W 400 MG/200 ML BAG IV SCH (08:42)
[2023-08-16] MEDS: D5NSS + 20MEQ KCL 20 MEQ/1,000 ML BAG IV SCH ×2 (08:42→19:26)
--- NOTE | 2023-08-16 12:35 | Hospitalist Progress Note ---
Date of Service August 16, 2023 Assessment & Plan (1) Retroperitoneal fluid collection: Plan: This appears to have developed after recent ureter stent placement. This could either be urine leakage from accidentally torn ureter or possibly retroperitoneal hemorrhage. Nevertheless, he is currently stable. Awaiting urology consultation and recommendations. (2) Influenza A: Plan: Supportive care. Minimal symptoms. Tamiflu was not ordered due to elevated creatinine levels (3) Stage 3b chronic kidney disease: Plan: MANOLO on CKD, stage III, present on admission. Continue IV fluids. Monitor intake and output. Serial labs. Lisinopril is temporarily on hold (4) Crohns disease: Plan: Stable. No symptoms at this time (5) Hypothyroid: Plan: Stable. Continue thyroid replacement therapy Plan Hopeful discharge to home soon Admission and Anticipated Discharge Date Admission Date: August 15, 2023 Subjective Alert and oriented. No distress. Awaiting urology consultation and recommendations. He is now on parenteral Cipro therapy. Blood and urine culture results are pending. The retroperitoneal fluid collection seen on CT scan could be either hematoma or ureteral urine leakage after recent stent placement. Review of Systems 2 Review of Systems: Constitutional-no fever or chills ENT-no blurred vision, no double vision, no epistaxis, no sore throat Respiratory-no cough, no wheezing, no shortness of breath Cardiac-no palpitations, no chest pain, no syncope GI-no nausea, vomiting, diarrhea, melena, hematochezia -no urinary retention, no urinary incontinence, no dysuria, no hematuria Musculoskeletal-no joint pain, no muscle tenderness Skin-no bruising, no rashes, no pruritus Neuro-no isolated weakness, no paresthesia, no weakness Psych-no depression, no anxiety Physical Exam 2 Physical Exam: General-alert and oriented x3, no fevers, no chills HEENT-head atraumatic and normocephalic, pupils equal and reactive to light, extraocular muscles intact Neck-no lymphadenopathy or thyromegaly, trachea midline Chest-clear to auscultation percussion. No rales wheezing or rhonchi Cardiac-regular rate and rhythm, normal S1 and S2 Abdomen-normal bowel sounds, nontender, no hepatosplenomegaly Extremities-no cyanosis, clubbing, or edema Neuro-cranial nerves II through XII intact, motor and sensory function within normal limits, strength symmetrical, no focal deficits Psych-normal affect, normal mood Results & Data Results & Data Vital Signs (Past 12 Hours) Vital Signs Temp Pulse Resp BP Pulse Ox O2 Del Method 08/16/23 07:55 Room Air 08/16/23 07:18 37.2 C 63 16 133/67 97 Room Air Laboratory Results 08/16/23 06:58 08/16/23 06:58 PG Care Time/CCT Total # of Minutes Spent Total Time Spent with Patient: Total time spent is greater than 50% in coordination of care (as documented) at patient's floor/unit and/or counseling patient: Coding Level of Care Code 03228 SUB INP/OBS CARE 3/50MIN Diagnoses Retroperitoneal fluid collection R18.8 Influenza A J10.1 Stage 3b chronic kidney disease N18.32 Crohns disease K50.90 Hypothyroid E03.9
--- NOTE | 2023-08-16 14:33 | Urology Consultation ---
<Statement entered by Sarwat Randolph MD - 08/16/23 15:54> I have seen and discussed Mr. Goodman's case with WHIT Short and agree with the above documentation. I suspect his shaking chills at home or more related to influenza than urinary tract infection, as urine appears fairly clear on recent culture that he does not have much of a leukocytosis. CT scan demonstrated a retroperitoneal fluid collection, likely related to his surgery. I am suspicious that this represents a urine leak, as there was some mucosal splitting at the time of his surgery. This should heal up with the stent in place, and it may be that the leak has healed already, however I think would be reasonable to proceed with retroperitoneal drain placement with interventional radiology. I discussed this with the IR team and we will tentatively plan on drain placement on 08/17. Please keep n.p.o. at midnight. Urology will follow along. -Sarwat Randolph MD. Date of Consultation August 16, 2023 Assessment & Plan (1) Retroperitoneal fluid collection: (2) Acute kidney injury: (3) Ureteral stent present: Plan 77yo/M who is s/p right URS/LL and stent placement on 08/02/23 who presented to the ED on 08/15/23 with fever, rigors, weakness, and fatigue. He had several days of reported rigors at home and fever. CT abdomen pelvis on arrival demonstrated a right retroperitoneal fluid collection ?resolving bleed vs urinoma, possible infection? He also tested positive for Influenza A infection. - Subjectively feeling better today, no reported flank pain. - Afebrile and hemodynamically stable. - Labs reviewed -WBC 5.15, hemoglobin 11.2, creatinine 2.35. - Urine culture 08/15 prelim no growth, repeat pending. - Blood cultures pending. - Voiding spontaneously, continue to monitor. Bladder scan prn. - No plan for urological intervention. - Continue supportive care. - Continue antibiotic therapy and tailor as culture data becomes available. - Continue to trend labs. - Will plan to make NPO at midnight for reassessment in the morning. - May need to consider IR drainage of fluid collection pending patient progression and reassessment in the AM. - Urology will follow. Plan of care reviewed with Dr. Randolph, on-call urologist History of Present Illness Attending Physician: Freddie Rudolph MD History of Present Illness 77-year-old male who presented to the ED on 08/15/2023 with fever, flank pain, rigors, fatigue and cough. Patient recently underwent urological procedure on 08/02/2023 right ureteroscopy and stone treatment with right stent placement with Dr. Randolph. He presented to the urology office yesterday 08/15/23 for stent removal however reported uncontrollable shaking. Given the concern of a possible infection it was recommended he proceed to the ED for further evaluation. On arrival to the ED he was afebrile and hemodynamically stable. Labs showing no leukocytosis, hemoglobin 13.4, and creatinine elevated to 2.59. Urinalysis with 3+ blood, trace LE, negative nitrite, negative bacteria. Urine and blood cultures collected and pending. CT abdomen pelvis obtained and demonstrated the right ureteral stent in place and a right retroperitoneal fluid collection possibly representing resolving retroperitoneal hemorrhage or possibly a urinoma. ED course: IV fluids, Tylenol, cefepime. Patient admitted to medicine service for continued care and management. CT abdomen pelvis- 1. A right ureteral stent is in place. No stones are identified in the right ureter along the course of the stent and there is no hydronephrosis. 2. Bilateral nephrolithiasis as above. 3. There is an approximately 15.5 x 10.5 x 3 cm multiloculated minimally complex right retroperitoneal fluid collection as detailed above. This is indeterminate, but new from the 01/24/[address] scan. This may represent a resolving retroperitoneal hemorrhage or possibly a urinoma. The sterility of this fluid cannot be assessed by imaging. 4. The bladder wall appears thickened. Correlate with clinical findings and urinalysis. 5. Cholelithiasis without CT evidence of acute cholecystitis. Patient examined at bedside today. Awake, resting in bed on arrival. No acute distress. at bedside. Overall feeling much better. He denies fevers, chills, nausea, vomiting. Voiding without issue. Denies hematuria or dysuria. Denies flank or back pain at present. Allergies Allergy/AdvReac Type Severity Reaction Status Date / Time azathioprine [From Imuran] Allergy Severe THROAT Verified 08/15/23 19:40 TIGHT AND TROUBLE BREATHING infliximab [From Remicade] Allergy Severe throat Verified 08/15/23 19:40 swells, tightness in chest Home Medications Medication Instructions Recorded Confirmed Type escitalopram oxalate 10 mg tablet 10 mg PO HS 06/08/23 08/15/23 History (Lexapro) levothyroxine 88 mcg tablet 88 mcg PO QAM 06/08/23 08/15/23 History cholecalciferol (vitamin D3) 25 25 mcg PO QAM 07/27/23 08/15/23 History mcg (1,000 unit) tablet (Vitamin D3) lisinopril 5 mg tablet 5 mg PO QAM 07/27/23 08/15/23 History sodium bicarbonate 650 mg tablet 650 mg PO QAM 07/27/23 08/15/23 History ciprofloxacin HCl 500 mg tablet 500 mg PO Q12H #15 tabs 08/15/23 08/15/23 Rx (Cipro) Patient History Medical History Hyperglycemia Hgb A1C 5.1 on 02/27/23 Kidney stones Anxiety C. difficile diarrhea dx 01/2023- completed vancomycin, symptoms resolved Complex renal cyst Chronic kidney disease, stage 3a Follows with Dr Parmar last seen 05/2023 DVT (deep venous thrombosis) 07/2019- s/p bowel obstruction- was on Eliquis- has since been d/c'ed- no issues since History of lung cancer 2018- right lobe s/p right upper lobectomy- no chemo or XRT Follows with pulm Neuropathic pain Hands and feet Crohns disease (~1985) Stable at this time - follows only with PCP Hypothyroid Surgical History S/P cystoscopy with ureteral stent placement x2; w/laser destruction kidney stone History of esophagogastroduodenoscopy (EGD) History of anesthesia reaction "woke up during last couple colonoscopies, was uncomfortable and could feel procedure" states no issues after last colonoscopy Status post lobectomy of lung (02/07/19) Right upper lobectomy Dr. Tucker 02-07-19 History of bronchoscopy History of colonoscopy History of appendectomy History of neck surgery bone spur removal--normal ROM History of bowel resection (~1989) DUE TO CROHNS Family History Father Heart disease Nephrolithiasis Other No family history of adverse response to anesthesia Denies family history of Crohn's disease Cancer Ulcerative colitis Social History Smoking Status: Never smoker Second Hand Exposure: No; Do You Dip or Chew Tobacco: No; Hx Alcohol Use: No Hx Substance Use: No Preferred Language: Ukrainian Communication Ability: Effective Visual Impairment: No Limitations Nursing Home Physician Required: No Beliefs That Will Affect Care: None Current Living Situation: Spouse Other Information That Helps Us Care for You: No Feels Safe at Home: Yes Safety Concerns: Feels Safe At This Time Assistive Devices: None Review of Systems Review of Systems: All systems reviewed & are unremarkable except as noted in HPI & below Physical Exam Constitutional: well developed and well nourished; no acute distress Neck: normal visual inspection Respiratory: no respiratory distress and no labored breathing Musculoskeletal: Head/Neck/Chest: normocephalic Skin: No visible rashes or lesions to exposed skin areas Neurologic: moves all extremities and awake Psychiatric: A+Ox3, euthymic affect Genitourinary: no CVA tenderness Results & Data Vital Signs (Past 12 Hours) Vital Signs Temp Pulse Resp BP Pulse Ox O2 Del Method 08/16/23 07:55 Room Air 08/16/23 07:18 37.2 C 63 16 133/67 97 Room Air PG Care Time/CCT Total # of Minutes Spent Total Time Spent with Patient: Total time spent is greater than 50% in coordination of care (as documented) at patient's floor/unit and/or counseling patient: Coding Level of Care Code 83480 INT INP/OBS CARE MIN Diagnoses Retroperitoneal fluid collection R18.8 Acute kidney injury N17.9 Ureteral stent present Z96.0
[2023-08-17] MEDS: LEVOTHYROXINE SODIUM 88 MCG TABLET PO SCH (05:41)
[2023-08-17 05:42] LABS: Basophils # (auto) 0.01 K/uL (0.00-0.20); Basophils % (auto) 0.2 %; Eosinophils # (auto) 0.03 K/uL (0.00-0.50); Eosinophils % (auto) 0.6 %; Hematocrit (blood only) 35.2 % (42.0-52.0); Hemoglobin 11.7 g/dl (14.0-18.0); Immature Granulocytes # (auto) 0.02 K/uL (0.01-0.20); Immature Granulocytes % (auto) 0.4 %; Lymphocytes # (auto) 0.95 K/uL (1.20-3.40); Lymphocytes % (auto) 18.9 %; Mean Corpuscular Hemoglobin 30.3 pg (25.0-34.0); Mean Corpuscular Hgb Conc 33.2 g/dL (32.0-36.0); Mean Corpuscular Volume 91.2 fL (80.0-100.0); Mean Platelet Volume 9.8 fL (9.4-12.4); Monocytes # (auto) 0.48 K/uL (0.11-0.59); Monocytes % (auto) 9.6 %; Neutrophils # (auto) 3.53 K/uL (1.40-6.50); Neutrophils % (auto) 70.3 %; Platelet Count 135 K/uL (130-400); RDW Coefficient of Variation 14.2 % (11.5-14.5); RDW Standard Deviation 47.6 fL (36.4-46.3); Red Blood Count 3.86 M/uL (4.70-6.10); White Blood Count 5.02 K/ul (4.8-10.8)
[2023-08-17 05:57] LABS: BUN Creatinine Ratio 10.2 (10-20); Calcium 8.2 mg/dl (8.6-10.3); Creatinine Clr Calc Pharmacy 20.9 ml/min; Est GFR (African American) 28.4 ml/min; Est GFR (Non-African American) 24.5 ml/min; Potassium 3.9 mmol/L (3.5-5.1)
[2023-08-17 06:10] LABS: Prothrombin Time 11.2 Seconds (9.0-12.0)
[2023-08-17] MEDS: CIPROFLOXACIN / D5W 400 MG/200 ML BAG IV SCH (07:57)
--- NOTE | 2023-08-17 10:24 | Urology Progress Note ---
Date of Service August 17, 2023 Assessment & Plan (1) Retroperitoneal fluid collection: Plan: I suspect the retroperitoneal fluid collection is a urinoma from his recent surgery. Tentative plan is to have a percutaneous drain placed today (08/17/2023). I think a drain will allow us to evaluate for any ongoing leakage and assess whether the ureter has healed at this point. Once drainage stops, I think he will be ready for stent removal at that time. This will likely be done as an outpatient. (2) Ureteral stent present: (3) Influenza A: Plan: Suspect fevers and chills are related to influenza as the urine does not appear infected. Would agree with antibiotics for now and follow cultures. Plan Urology will follow along. Admission and Anticipated Discharge Date Admission Date: August 15, 2023 Subjective Feeling okay this morning, having some fevers and chills. Emptying his bladder without any trouble. Still having some irritation from the stent. WBC stable at 5.02 Creatinine slightly increased at 2.45 (up from 2.35) Urine culture and blood cultures still pending. Urine culture from the urology office on 08/15 was negative. Physical Exam Physical Exam: Tired appearing, NAD Results & Data Vital Signs (Past 12 Hours) Vital Signs Temp Pulse Resp BP Pulse Ox O2 Del Method 08/17/23 07:19 38.4 C H 67 16 135/69 98 Room Air PG Care Time/CCT Total # of Minutes Spent Total Time Spent with Patient: Total time spent is greater than 50% in coordination of care (as documented) at patient's floor/unit and/or counseling patient: Coding Level of Care Code 30960 SUB INP/OBS CARE /25MIN Diagnoses Retroperitoneal fluid collection R18.8 Ureteral stent present Z96.0 Influenza A J10.1
[2023-08-17] MEDS ORDERED: fentaNYL citrate PF 100 MCG/2 ML VIAL ONE (12:30)
[2023-08-17] MEDS: D5NSS + 20MEQ KCL 20 MEQ/1,000 ML BAG IV SCH (13:48)
--- NOTE | 2023-08-17 14:43 | CT Scan Report ---
CT-guided right flank fluid collection drain placement INDICATION: Right flank fluid collection; possible urinoma PROCEDURE: Procedure and risks were explained. Informed consent was obtained. A final timeout was com pleted. The patient was placed prone on the CT examination table. The right flank was prepped and rodolfo ped in sterile fashion. 1% lidocaine was utilized for skin anesthesia. Utilizing CT guidance, an 18-gauge Chiba needle was advanced into the right flank fluid collection. A 0.035 Amplatz wire was introduced through the intracranial exchange for an 8 [place] locking pigtail catheter. Approximately 20 mL of blood-tinged fluid was aspirated with a portion sent to lab for anal ysis. The pigtail catheter was sutured to the skin with 2-0 silk and placed to suction bag drainage. Post-CT imaging demonstrated the pigtail catheter to be in the most dependent/posterior portion of th e fluid collection. The patient tolerated the procedure well. Vital signs will be monitored postproce dure. IMPRESSION: CT-guided right flank drain placement as above. Performed, dictated, and signed by Srinivasan Palma PA-C; to be co-signed by Dr. Kirt Rodriguez. Electronically signed by: Kirt Rodriguez M.D. 08/17/2023 2:44 PM
--- NOTE | 2023-08-17 15:56 | Hospitalist Progress Note ---
Date of Service August 17, 2023 Assessment & Plan (1) Retroperitoneal fluid collection: Plan: This appears to have developed after recent ureter stent placement. This could either be urine leakage from accidentally torn ureter or possibly retroperitoneal hemorrhage. Nevertheless, he is currently stable. Urology consultation and recommendations appreciated. He had a percutaneous drain placed today, August 16 (2) Influenza A: Plan: Supportive care. Minimal symptoms. Tamiflu was not ordered due to elevated creatinine levels (3) Stage 3b chronic kidney disease: Plan: MANOLO on CKD, stage III, present on admission. Continue IV fluids. Monitor intake and output. Serial labs. Lisinopril is temporarily on hold. Creatinine remains elevated at 2.4 (4) Crohns disease: Plan: Stable. No symptoms at this time (5) Hypothyroid: Plan: Stable. Continue thyroid replacement therapy Plan Hopeful discharge to home soon Admission and Anticipated Discharge Date Admission Date: August 15, 2023 Subjective The patient was seen prior to having the drain placed into the retroperitoneal fluid collection. He was alert and oriented without complaint. His was at the bedside Review of Systems 2 Review of Systems: Constitutional-no fever or chills ENT-no blurred vision, no double vision, no epistaxis, no sore throat Respiratory-no cough, no wheezing, no shortness of breath Cardiac-no palpitations, no chest pain, no syncope GI-no nausea, vomiting, diarrhea, melena, hematochezia -no urinary retention, no urinary incontinence, no dysuria, no hematuria Musculoskeletal-no joint pain, no muscle tenderness Skin-no bruising, no rashes, no pruritus Neuro-no isolated weakness, no paresthesia, no weakness Psych-no depression, no anxiety Physical Exam 2 Physical Exam: General-alert and oriented x3, no fevers, no chills HEENT-head atraumatic and normocephalic, pupils equal and reactive to light, extraocular muscles intact Neck-no lymphadenopathy or thyromegaly, trachea midline Chest-clear to auscultation percussion. No rales wheezing or rhonchi Cardiac-regular rate and rhythm, normal S1 and S2 Abdomen-normal bowel sounds, nontender, no hepatosplenomegaly Extremities-no cyanosis, clubbing, or edema Neuro-cranial nerves II through XII intact, motor and sensory function within normal limits, strength symmetrical, no focal deficits Psych-normal affect, normal mood Results & Data Results & Data Vital Signs (Past 12 Hours) Vital Signs Temp Pulse Pulse Resp BP Pulse Ox O2 Del Method 08/17/23 14:36 37.0 C 65 16 109/58 L 98 Room Air 08/17/23 07:19 38.4 C H 67 16 135/69 98 Room Air Laboratory Results 08/17/23 05:24 08/17/23 05:24 PG Care Time/CCT Total # of Minutes Spent Total Time Spent with Patient: Total time spent is greater than 50% in coordination of care (as documented) at patient's floor/unit and/or counseling patient: Coding Level of Care Code 59621 SUB INP/OBS CARE 2/35MIN Diagnoses Retroperitoneal fluid collection R18.8 Influenza A J10.1 Stage 3b chronic kidney disease N18.32 Crohns disease K50.90 Hypothyroid E03.9
[2023-08-17] MEDS: ESCITALOPRAM OXALATE 10 MG TAB PO SCH (19:53)
[2023-08-18] MEDS: D5NSS + 20MEQ KCL 20 MEQ/1,000 ML BAG IV SCH (01:07)
[2023-08-18] MEDS: LEVOTHYROXINE SODIUM 88 MCG TABLET PO SCH (05:30)
[2023-08-18] MEDS: CIPROFLOXACIN / D5W 400 MG/200 ML BAG IV SCH (07:50)
[2023-08-18 08:09] LABS: Basophils # (auto) 0.01 K/uL (0.00-0.20); Basophils % (auto) 0.3 %; Eosinophils # (auto) 0.05 K/uL (0.00-0.50); Eosinophils % (auto) 1.4 %; Hematocrit (blood only) 33.2 % (42.0-52.0); Hemoglobin 11.1 g/dl (14.0-18.0); Immature Granulocytes # (auto) 0.01 K/uL (0.01-0.20); Immature Granulocytes % (auto) 0.3 %; Lymphocytes # (auto) 1.14 K/uL (1.20-3.40); Lymphocytes % (auto) 32.2 %; Mean Corpuscular Hemoglobin 29.9 pg (25.0-34.0); Mean Corpuscular Hgb Conc 33.4 g/dL (32.0-36.0); Mean Corpuscular Volume 89.5 fL (80.0-100.0); Mean Platelet Volume 10.2 fL (9.4-12.4); Monocytes % (auto) 11.3 %; Neutrophils # (auto) 1.93 K/uL (1.40-6.50); Neutrophils % (auto) 54.5 %; Platelet Count 125 K/uL (130-400); RDW Coefficient of Variation 14.2 % (11.5-14.5); Red Blood Count 3.71 M/uL (4.70-6.10); White Blood Count 3.54 K/ul (4.8-10.8)
[2023-08-18 08:25] LABS: BUN Creatinine Ratio 8.9 (10-20); Calcium 8.1 mg/dl (8.6-10.3); Creatinine Clr Calc Pharmacy 23.9 ml/min; Est GFR (African American) 33.4 ml/min; Est GFR (Non-African American) 28.8 ml/min; Potassium 3.7 mmol/L (3.5-5.1)
--- NOTE | 2023-08-18 10:51 | Urology Progress Note ---
Date of Service August 18, 2023 Assessment & Plan (1) S/P ureteral stent placement: (2) Retroperitoneal fluid collection: Plan 77-year-old male who is status post right ureteroscopy for stone treatment on 08/02/2023. He presented to the hospital on 08/15/2023 with fevers. He was flu positive but his CT scan showed a right retroperitoneal fluid collection which is suspected to be a urine leak. Stent was in appropriate position in the right kidney. Patient is tolerating draining well and would like to go home with the drain, which I think is reasonable. His labs are improving and I suspect his MANOLO is partly due to reabsorption of the urine that was sitting in his retroperitoneum No cultures are positive but I think it is reasonable to send out with antibiotics. Oral Cipro is reasonable as he is tolerated IV Cipro well in the hospital Stable for discharge home from a urologic perspective. Message will be sent for outpatient follow-up to discuss drain removal and stent removal. Admission and Anticipated Discharge Date Admission Date: August 15, 2023 Subjective No acute issues overnight. Afebrile with stable vitals. He did have a temperature of 38.4 at 7 AM yesterday. He had a drain placed in his retroperitoneal fluid collection yesterday by radiology. Fluid creatinine is pending. This is had a relatively small amount of serosanguineous drainage. He denies any pain with the drain. Labs today show a white blood cell count of 3.5, creatinine of 2.14 which is down from 2.45. No cultures are positive to date. He continues on Cipro. Review of Systems Review of Systems: 14 point review of systems negative outs gagandeep of what is listed above in HPI Physical Exam Physical Exam: General: Alert and oriented, no acute distress HEENT: Normocephalic, mucous membranes moist Pulmonary: Nonlabored respirations Abdomen: Nondistended Extremities: Moves all 4 spontaneously Neuro: No gross deficits Skin: Warm, dry, no rashes noted Results & Data Vital Signs (Past 12 Hours) Vital Signs Temp Pulse Resp BP Pulse Ox O2 Del Method 08/18/23 07:34 36.8 C 57 L 16 136/69 99 Room Air 08/18/23 03:12 36.7 C 55 L 14 118/68 98 Room Air 08/17/23 23:35 36.9 C 57 L 16 130/61 98 Room Air PG Care Time/CCT Total # of Minutes Spent Total Time Spent with Patient: Total time spent is greater than 50% in coordination of care (as documented) at patient's floor/unit and/or counseling patient: Coding Level of Care Code 83072 SUB INP/OBS CARE 2/35MIN Diagnoses S/P ureteral stent placement Z96.0 Retroperitoneal fluid collection R18.8
--- NOTE | 2023-08-18 12:42 | Discharge Summary ---
Date of Service August 18, 2023 Admission HPI Per Admitting Provider Ba Goodman is a pleasant 77-year-old male previous presenting with fatigue, myalgias, dry cough, poor appetite and rigors. Patient is seen with his and daughter at bedside. Patient with history of nephrolithiasis for which he follows with urology. On 08/02/2023 had a cystoscopy with laser destruction of stones with placement of a right-sided ureteral stent. Patient reports that the procedure went well but has been having significant discomfort at the stent site since its placement. He reports he has been unable to sit for prolonged periods of time due to right groin pain. Over the past 6 days patient has been experiencing "shaking spells" he has also had dry cough, fatigue, myalgias and poor appetite. Patient had an appointment with urology today in clinic to have his stent removed. Patient reported his symptoms and it was decided to hold off on stent removal due to concern for infection. Patient is to return to urology in 10 days for stent removal. Patient's daughter checked on him later in the day and he was found to have a fever of 102.5 therefore he came to the ER. Additionally, patient reports ongoing hematuria but normal urine output and no difficulty passing urine. He denies nausea, vomiting, back pain, diarrhea. No additional complaints at this time In the ER, he is afebrile, hemodynamically stable, no acute distress ER course: Cefepime Normal saline x 1500 mL Tylenol 1 g Patient EKG Principal Diagnosis Influenza A, acute on chronic kidney disease, hypokalemia, generalized weakness, retroperitoneal fluid collection after recent ureter stent placement thought to be a urinoma Discharge Exam General-alert and oriented x3, no fevers, no chills HEENT-head atraumatic and normocephalic, pupils equal and reactive to light, extraocular muscles intact Neck-no lymphadenopathy or thyromegaly, trachea midline Chest-clear to auscultation percussion. No rales wheezing or rhonchi Cardiac-regular rate and rhythm, normal S1 and S2 Abdomen-normal bowel sounds, nontender, no hepatosplenomegaly Extremities-no cyanosis, clubbing, or edema Back- transcutaneous drain in place in the lower back for the retroperitoneal urinoma Neuro-cranial nerves II through XII intact, motor and sensory function within normal limits, strength symmetrical, no focal deficits Psych-normal affect, normal mood Discharge Data Allergies Allergy/AdvReac Type Severity Reaction Status Date / Time azathioprine [From Imuran] Allergy Severe THROAT Verified 08/15/23 19:40 TIGHT AND TROUBLE BREATHING infliximab [From Remicade] Allergy Severe throat Verified 08/15/23 19:40 swells, tightness in chest Consultations 08/15/23 18:24 ED Decision to Admit Stat 08/15/23 23:39 Consult Urology Routine Ordered Studies 08/15/23 13:41 CT abd pelvis IV con only Stat 08/17/23 12:[address] periton/retro w/gdnce Routine Hospital Course (1) Retroperitoneal fluid collection: This appears to have developed after recent ureter stent placement. Most likely a urinoma. Transcutaneous drain was placed yesterday, August 17. This will remain in place at discharge. Urology recommendations appreciated. He will continue oral Cipro therapy at discharge. (2) Influenza A: Supportive care. Minimal symptoms. Tamiflu was not ordered due to elevated creatinine levels and does not appear to be needed anyway (3) Stage 3b chronic kidney disease: MANOLO on CKD, stage III, present on admission. Treated with IV fluids while hospitalized. Monitor intake and output. Serial labs. Lisinopril is temporarily on hold. Restart at discharge. (4) Crohns disease: Stable. No symptoms at this time (5) Hypothyroid: Stable. Continue thyroid replacement therapy Plan Home today, August 18, with retroperitoneal drain in place on oral Cipro. Follow-up with urology as an outpatient. 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 This will be removed as an outpatient by urology. Continue Cipro 500 mg twice daily while the drain remains in place Pending Studies at Discharge: No Stand-Alone Forms: [employer], Smoking Cessation Medications and DC Order Prescriptions: Continued escitalopram oxalate [Lexapro] 10 mg tablet 10 mg PO HS Rx Instructions: 10 mg orally QHS; levothyroxine 88 mcg tablet 88 mcg PO QAM cholecalciferol (vitamin D3) [Vitamin D3] 25 mcg (1,000 unit) Tablet 25 mcg PO QAM sodium bicarbonate 650 mg tablet 650 mg PO QAM lisinopril 5 mg tablet 5 mg PO QAM Changed ciprofloxacin HCl [Cipro] 500 mg tablet 500 mg PO BID Qty: 14 0RF Rx Instructions: ORDERED 08/15/23. Take twice daily for 7 days, save last dose for 1 hour prior to stent removal Discharge Orders: Discharge Order (Routine); Ordered 08/18/23 Ordered By: Freddie Rudolph Admission Data Admit Date/Time: 08/15/23 20:27 Attending Provider: Freddie Rudolph Admit Provider: Yoselin Espino Primary Care Provider: Tyler Brandt Other Providers: Adrian Esparza; Loi Paez Coding Level of Care Code 28638 INP/OBS DISCH >30 MIN Diagnoses Retroperitoneal fluid collection R18.8 Influenza A J10.1 Stage 3b chronic kidney disease N18.32 Crohns disease K50.90 Hypothyroid E03.9
--- NOTE | 2023-08-24 10:17 | Coding Query ---
CODING QUERY To promote full compliance with coding requirements relating to patient care, provider participation is requested in all cases of director of consulting services uncertainty. 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 Please specify below, in your clinical opinion, regarding the possible urinoma: ( ) most likely a complication of the recent ureteral stent placed (x) most likely a postprocedural complication from the recent procedure, not the ureteral stent ( ) Not a complication of the recent ureteral stent or procedure Physician's Response(s): Thank you Lena Salas Principal Diagnosis: "that condition established after study, to be chiefly responsible for occasioning the admission of the patient to the hospital for care." Co-Existing Principal Diagnosis: "when two or more diagnoses equally meet the criteria for principal diagnosis as determined by the circumstances of admission, diagnostic work up, and/or therapy provided, and the Alphabetic Index, Tabular List, or another coding guideline does not provide sequencing direction, any one of the diagnoses may be sequenced first." "When the physician has documented what appears to be a current diagnosis in the body of the record, but has not included the diagnosis in the final diagnostic statement, the physician should be asked whether the diagnosis should be added." (Source [facility] 2 QTR90. p3-4) LEV
== END 2023-08-18 15:10 | disposition home or self-care (01) | DRG 699 ==
LOC: ED 13:28 → 3E 20:27 → SUATTDRO 20:27 → 3E 23:13